=== PATIENT | female | born 1950 | race Caucasian/White ===

== ENCOUNTER 2016-10-09 13:10 | Emergency (ER) | payer BC, OTHER ==
[2016-10-09 14:01] VITALS: BP 188/95
--- NOTE | 2016-10-09 14:21 | UC ---
Respiratory Complaint HPI - HPI Summary HPI Summary: ONSET OF LEFT FACIAL SWELLING, REDNESS AND TENDERNESS YESTERDAY. PT HAS KNOWN EXTREMELY POOR DENTITION AND HAS CONSTANT DIFFUSE TOOTH PAIN THAT IS NOW WORSE. SHE HAS HAD SOME DRAINAGE FROM HER MOUTH OVER THE PAST WEEK. NOT SURE EXACTLY WHERE THIS IS COMING FROM. HAD FEVER LAST NIGHT. TEETH SENSITIVE TO HOT, COLD AND CHEWING. NO COUGH, CONGESTION, ST, EAT PAIN, N/V/D. - History of Current Complaint Chief Complaint: UCRespiratory Stated Complaint: SINUS CONGESTION Time Seen by Provider: 10/09/16 14:13 Hx Obtained From: Patient Onset/Duration: Gradual Onset, Lasting Days, Still Present Timing: Constant Severity Initially: Moderate Severity Currently: Moderate Pain Intensity: 8 Pain Scale Used: 0-10 Numeric Aggravating Factors: Nothing Alleviating Factors: Nothing Associated Signs And Symptoms: Positive: Fever - Allergies/Home Medications Allergies/Adverse Reactions: Allergies Allergy/AdvReac Type Severity Reaction Status Date / Time Ibuprofen AdvReac Mild See Comment Verified 10/09/16 14:37 Home Medications: Home Medications Atorvastatin* [Lipitor 20 MG*] 20 mg PO 1700 10/09/16 [History Confirmed ] Lansoprazole [Prevacid] 30 mg PO 10/09/16 [History] Lisinopril [Zestril 10 MG-] 10 mg PO DAILY 10/09/16 [History Confirmed 10/09/16] Multiple Vitamins W/ Minerals [Multivitamin Women] 1 tab PO 10/09/16 [History] metFORMIN* [Glucophage*] 500 mg PO BID 10/09/16 [History Confirmed 10/09/16] PMH/Surg Hx/FS Hx/Imm Hx Endocrine History Of: Reports: Diabetes - type 2 dm, Dyslipidemia Denies: Thyroid Disease Cardiovascular History Of: Reports: Hypertension Denies: Cardiac Disorders Respiratory History Of: Denies: COPD, Asthma GI/ History Of: Denies: Ulcer Cancer History Of: Denies: Breast Cancer - Surgical History Surgical History: Yes Surgery Procedure, Year, and Place: hysterectomy - Family History Known Family History: Positive: Hypertension, Diabetes - Social History Alcohol Use: Rare Substance Use Type: None Smoking Status (MU): Never Smoked Tobacco Review of Systems Constitutional: Fever Skin: Other - LEFT CHEEK ERYTHEMA ENT: Dental Pain Respiratory: Negative Cardiovascular: Negative Gastrointestinal: Negative All Other Systems Reviewed And Are Negative: Yes Physical Exam Triage Information Reviewed: Yes Appearance: Well-Appearing, No Pain Distress, Well-Nourished Vital Signs: Initial Vital Signs Temp 99.7 F 10/09/16 13:57 Pulse 93 10/09/16 13:57 Resp 18 10/09/16 13:57 BP 188/95 10/09/16 13:57 Pulse Ox 96 10/09/16 13:57 Vital Signs Reviewed: Yes Eyes: Positive: Conjunctiva Clear ENT: Positive: Hearing grossly normal, Pharynx normal, TMs normal Dental: Positive: Percussion Tenderness @ - DIFFUSELY OVER ALL DENTITION, Gross Decay/Caries @ - DIFFUSELY WITH EXTENSIVE PLAQUE BUILDUP. Neck: Positive: Supple, Nontender, No Lymphadenopathy Respiratory Exam: Normal Cardiovascular Exam: Normal Abdomen Description: Positive: Soft Musculoskeletal: Positive: No Edema Neurological: Positive: Alert Psychological: Positive: Age Appropriate Behavior Skin: Negative: rashes UC Diagnostic Evaluation - Laboratory O2 Sat by Pulse Oximetry: 96 Respiratory Course/Dx - Differential Dx/Diagnosis Differential Diagnosis/HQI/PQRI: Other - SIALADENITIS Provider Diagnoses: DENTAL INFECTION Discharge - Discharge Plan Condition: Stable Disposition: HOME Prescriptions: Amoxicillin/Clavulanate TAB* [Augmentin TAB 875*] 875 mg PO BID #20 tab Chlorhexidine MW 0.12% 473ML* [Peridex Mouth Wash 0.12%*] 15 ml SWISH SPIT BID # 1 bottle Fluconazole [Diflucan] 1 tab PO ONCE #2 tab Hydrocodone-Acetaminophen [Lorcet 5-325 mg] 1 tab PO QID PRN #20 tab MDD 4 PRN Reason: Pain Patient Education Materials: Dental Abscess (ED), Dental Caries (ED), Toothache (ED) Referrals: Delvin Alcantar MD [Primary Care Provider] - If Needed Additional Instructions: DENTAL OFFICE INFORMATION PROVIDED. YOU MUST SEE A DENTIST JOSEFINA FOR YOUR POOR DENTITION. TAKE THE ANTIBIOTIC FOR THE FULL 10 DAYS. ANTISEPTIC MOUTHWASH TWICE DAILY. PAIN MEDS NEEDED. USE THE DIFLUCAN FOR YEAST INFECTION IF NEEDED. SEEK FOLLOW-UP IF YOUR SYMPTOMS DO NOT IMPROVE OVER THE NEXT SEVERAL DAYS.
== END 2016-10-09 14:44 | disposition home or self-care (01) ==
LOC: UCEAST 13:10
DX: K04.7 Periapical abscess without sinus (principal); R50.9 Fever, unspecified; Z88.6 Allergy status to analgesic agent; E11.9 Type 2 diabetes mellitus without complications; Z79.84 Long term (current) use of oral hypoglycemic drugs; I10 Essential (primary) hypertension
CPT/HCPCS: 99212; G0463

== ENCOUNTER 2018-03-01 11:56 | Emergency (ER) | payer MEDICARE, OTHER ==
[2018-03-01 12:26] VITALS: BP 178/85
--- NOTE | 2018-03-01 12:32 | UC ---
Eye Complaint HPI - HPI Summary HPI Summary: 67 yo female presents with left eye redness, drainage, pain, and swelling for the last 3 days. She tells me that she was seen 4 days ago by ophthalmology and dx'd with conjunctivitis and placed on antibiotic eye drops. She had an eye patch at home that she has been applying herself. Since that time she has noticed the skin around the eye begin to swell, become more painful, and get red. She has also felt feverish, but has not taken her temperature. She is unable to open her left eye due to pain and swelling. Also has had a left sided headache. - History of Current Complaint Chief Complaint: UCEye Stated Complaint: eye complaint Time Seen by Provider: 03/01/18 12:32 Hx Obtained From: Patient Onset/Duration: Gradual Onset Timing: Constant Severity Initially: Moderate Severity Currently: Severe Pain Intensity: 8 Pain Scale Used: 0-10 Numeric - Allergies/Home Medications Allergies/Adverse Reactions: Allergies Allergy/AdvReac Type Severity Reaction Status Date / Time ibuprofen Allergy Unknown Verified 03/01/18 12:27 Reaction Details Penicillins Allergy Unknown Verified 03/01/18 12:27 Reaction Details Home Medications: Home Medications Acetaminophen [Acetaminophen Extra Strength] 500 mg PO 03/01/18 [History] Polymyxin B Sulfate,Micronized [Polymyxin B Sulfate] 1 each MC 03/01/18 [History ] PMH/Surg Hx/FS Hx/Imm Hx Endocrine History: Diabetes, Dyslipidemia Cardiovascular History: Hypertension - Surgical History Surgical History: Yes Surgery Procedure, Year, and Place: hysterectomy - Family History Known Family History: Positive: Hypertension, Diabetes - Social History Lives: With Family Alcohol Use: Rare Substance Use Type: None Smoking Status (MU): Never Smoked Tobacco Review of Systems Constitutional: Fever Skin: Negative Eyes: Drainage, Eye Redness, Other - Left eye swelling ENT: Negative Respiratory: Negative Cardiovascular: Negative Neurovascular: Negative Neurological: Headache Psychological: Negative All Other Systems Reviewed And Are Negative: Yes Physical Exam - Summary Physical Exam Summary: GENERAL: NAD. Obese SKIN: No rashes, sores, lesions, or open wounds - see EYES HEENT: Head: AT/NC Eyes: Left eye: Severe edema upper and lower lid with moderate TTP and erythema and surrounding edema. Copious drainage coming from the eye. Unable to manually open the eye due to swelling and pain. Erythema extends superior to her nasal bridge and overlying the left maxillary sinus. NECK: Supple. Nontender. No lymphadenopathy. CHEST: No accessory muscle use. Breathing comfortably and in no distress. CV: RRR. Without m/r/g. Pulses intact. Brisk cap refill. NEURO: Alert. PSYCH: Age appropriate behavior. Triage Information Reviewed: Yes Vital Signs: Initial Vital Signs Temp 101.4 F 03/01/18 12:21 Pulse 91 03/01/18 12:21 Resp 18 03/01/18 12:21 BP 178/85 03/01/18 12:21 Pulse Ox 95 03/01/18 12:21 Eye Complaint Course/Dx - Course Course Of Treatment: Periorbital cellulitis left eye with fever - her boyfriend drove her here today, he will drive her immediately to the ER. Opthalmology Dr. Epps is front clerk - Differential Dx/Diagnosis Provider Diagnoses: Periorbital cellulitis left Discharge - Sign-Out/Discharge Documenting (check all that apply): Discharge/Admit/Transfer - Discharge Plan Condition: Stable Disposition: HOME Referrals: Delvin Alcantar MD [Primary Care Provider] - Additional Instructions: Please have your boyfriend drive you directly to the ER for your eye swelling - Billing Disposition and Condition Condition: STABLE Disposition: Home
== END 2018-03-01 12:40 | disposition home or self-care (01) ==
LOC: UCEAST 11:56
DX: L03.213 Periorbital cellulitis (principal); E11.9 Type 2 diabetes mellitus without complications; I10 Essential (primary) hypertension; Z88.0 Allergy status to penicillin; Z88.8 Allergy status to other drugs, medicaments and biological substances
CPT/HCPCS: 99212; G0463

== ENCOUNTER 2018-03-01 13:09 | Inpatient (IN) | payer MEDICARE ==
[2018-03-01] MEDS ORDERED: NS 0.9% 1000 ML*IV.FLUID IV ONE (13:39)
[2018-03-01] MEDS ORDERED: cefTRIAXone(*) 2 GM in NS 0.9% 100 ML* 100 ML IVPB ONE (13:45)
[2018-03-01] MEDS ORDERED: Vancomycin(*) 1,000 MG in NS 0.9% 250 ML* 250 ML IVPB ONE (13:45)
--- NOTE | 2018-03-01 14:27 | RAD ---
Indication: Fever. Single frontal view of the chest performed at 1400 hours was reviewed. No prior study is available. No mediastinal shift is noted. Heart is of normal size and configuration. Lung hoffman appear clear. IMPRESSION: NO ACTIVE CARDIOPULMONARY DISEASE IS NOTED.
--- NOTE | 2018-03-01 14:39 | RAD ---
Indication: Headache and fever. CT of the brain was performed without IV contrast. No prior study is available for comparison. Ventricular structures are midline. No midline shift is noted. There is no evidence of intracranial hemorrhage. At the base of the skull there is a slightly hyperdense extra-axial mass which is adjacent and extrinsic to the gerardo arising from the base of the skull which may represent a small meningioma. MRI could BE performed on a nonemergent basis. Mastoid air cells and paranasal sinuses are otherwise unremarkable. The orbits are grossly unremarkable. IMPRESSION: There is no intracranial hemorrhage. There is an extra-axial hyperdense mass at the skull base in the prepontine cistern measuring up to 1.5 cm which may represent a meningioma. Correlation with nonemergent MRI is suggested.
--- NOTE | 2018-03-01 14:42 | RAD ---
Indication: Left facial swelling. CT of the facial bones was performed without IV contrast. Coronal and sagittal reconstructed images were obtained. There is marked soft tissue swelling surrounding the right orbit with swelling of the eyelid and soft tissues surrounding the right orbit. No intraconal or extraconal extension is noted. No drainable fluid collection is noted. Findings are consistent with left periorbital cellulitis. No evidence of intraorbital fat streaking is noted. Extraocular muscles are intact. No bony abnormality is identified. Paranasal sinuses are clear. The right orbit is otherwise unremarkable. Zygomatic arch and zygoma are intact. The visualized mandible is intact. The visualized cervical spine is unremarkable. Scattered lymph nodes are noted throughout the neck. IMPRESSION: Soft tissue swelling surrounding the left orbit consistent with left periorbital cellulitis without drainable fluid collection. No extension into the intraconal or extraconal orbit is noted.
[2018-03-01] MEDS ORDERED: Acyclovir IV(*) 800 MG in NS 0.9% 250 ML* 250 ML IVPB SCH (15:00)
[2018-03-01 15:13] LABS: ABS Basophils 0 10^3/ul (0-0.2); ABS Eosinophils 0 10^3/ul (0-0.6); ABS Lymphocytes 1.7 10^3/ul (1.0-4.8); ABS Monocytes 1.5 10^3/ul (0-0.8); ABS Neutrophils 7.6 10^3/ul (1.5-7.7); ABS Nucleated RBC 0 10^3/ul; Eosinophil % 0 % (0-6); Hematocrit 36 % (35-47); Hemoglobin 11.8 g/dl (12.0-16.0); Lymphocyte % 15.3 % (25-47); Mean Corpuscular HGB Conc 33 g/dl (31-36); Mean Corpuscular Hemoglobin 27 pg (27-31); Mean Corpuscular Volume 81 fL (80-97); Mean Platelet Volume 8.6 um3 (7.4-10.4); Nucleated Red Blood Cells % 0; Platelet Count 177 10^3/ul (150-450); Red Blood Count 4.39 10^6/ul (4.00-5.40); Red Cell Distribution Width 15 % (10.5-15); White Blood Count 10.8 10^3/ul (3.5-10.8)
[2018-03-01 15:22] LABS: INR 1.03 (0.77-1.02)
[2018-03-01 15:31] LABS: EGFR Non-African American 64.5 (>60)
[2018-03-01] MEDS ORDERED: Dextrose 50% Syringe 50 ML* 25 GM/50 ML SYRINGE IV PUSH PRN (16:04)
[2018-03-01] MEDS ORDERED: HYDROcodone/ACETAMIN 5-325 MG* 1 TAB PO PRN (16:06)
--- NOTE | 2018-03-01 16:19 | ADMNOTE ---
Subjective Date of Service: 03/01/18 Interval History: ADMISSION HISTORY AND PHYSICAL EXAM: Allergies Allergy/AdvReac Type Severity Reaction Status Date / Time ibuprofen Allergy Unknown Verified 03/01/18 13:33 Reaction Details Penicillins ADVERSE REACTION YEAST INFECTION Verified 03/01/18 13:33 Home Medications Medication Instructions Recorded Confirmed Type Atorvastatin* [Lipitor 20 MG*] 20 mg PO 1700 10/09/16 05/09/17 History Hydrocodone-Acetaminophen [Lorcet 1 tab PO QID PRN #20 tab MDD 4 10/09/16 Rx 5-325 mg] Lansoprazole [Prevacid] 30 mg PO 10/09/16 History Lisinopril [Zestril 10 MG-] 10 mg PO DAILY 10/09/16 10/09/16 History Multiple Vitamins W/ Minerals 1 tab PO 10/09/16 History [Multivitamin Women] metFORMIN* [Glucophage 500 MG TAB 500 mg PO BID 10/09/16 05/09/17 History *] Meloxicam 05/09/17 History Acetaminophen [Acetaminophen Extra 500 mg PO 03/01/18 History Strength] Polymyxin B Sulfate,Micronized 1 each MC 03/01/18 History [Polymyxin B Sulfate] HPI: The patient was in her usual state of health until 02/24 when she developed pain and redness of the L eye. She saw Dr. Epps on 02/26 and he prescribed polymixin B eye drops. The redness spread to her periorbital area and her scalp and the pain worsened. She took some APAP, none today, can tolerate the pain. She ate breakfast. Chills and sweats at home. Family History: Findings - M had colon cancer, daughter had melanoma. F unknown cause. Social History: Findings - Quit smoking many yrs ago. Works part-time. Lives with her boyfriend Luis Galvin. He and her daughter Soraya are her SDM's. Past Medical History: Findings - Hysterectomy, D&C, 3 children Review of Systems - Measurements Intake and Output: Intake and Output Last 24 Hours 02/27/18 02/28/18 03/01/18 03/02/18 06:59 06:59 06:59 06:59 Weight 240 lb - Review of Systems Constitutional Symptoms: Negative: Weight Gain, Weight Loss, Weakness, Fatigue, Fever, Night Sweats, Unexplained Falls, Other Dermatology: Positive: Other - see subjective HEENT: Positive: Normal Eyes: Positive: Other - see subjective Thyroid: Positive: Normal Pulmonary: Positive: Normal Cardiology: Positive: Normal Gastroenterology: Positive: Normal Genital - Urinary: Positive: Normal Musculoskeletal: Negative: Joint Pain, Joint Stiffness, Arthritis, Osteoporosis, Low Back Pain , Sciatica, Joint Deformities, Kyphoscoliosis, Other Endocrinology: Positive: Diabetes Mellitus Hematologic/Lymphatic: Negative: Anemia, Easy Brusing, Hx Leukemia, Hx Lymphoma, Use of Anticoagulant, Use of Antiplatelet Drugs, Other Neurology: Positive: Headache Psychiatry: Positive: Normal Allergic/Immunologic: Negative: Hx Anaphylaxis, Hx Angioedema, Hx Environmental, Hx Seasonal, Athsma, Hx HIV, Immunocompromise, Swollen Glands LymphNodes, Other Objective Active Medications: Hydrocodone Bitart/Acetaminophen (Bozrah 5-325 Tab*) 1 tab PO QID PRN PRN Reason: PAIN Dextrose (D50w Syringe 50 Ml*) 12.5 gm IV PUSH .FOR FS < 60 - SS PRN PRN Reason: FS < 60 Enoxaparin Sodium (Lovenox(*)) 40 mg SUBCUT Q24H IRENE Acyclovir Sodium 800 mg/ (Sodium Chloride) 266 mls @ 266 mls/hr IVPB Q8H IRENE Acyclovir Sodium 800 mg/ (Sodium Chloride) 266 mls @ 0 mls/hr IVPB Q8H IRENE Vancomycin HCl / Sodium (Chloride) 250 mls @ 166.667 mls/hr IVPB .CONTINUE PROTOCOL IRENE Piperacillin Sod/Tazobactam (Sod 3.375 gm/ Sodium Chloride) 100 mls @ 25 mls/ hr IVPB Q8H [facility] Insulin Human Lispro (Humalog*) 0 units SUBCUT ACHS IRENE; Protocol Lisinopril (Prinivil Tab*) 10 mg PO DAILY [facility] Non-Formulary Medication (Polymyxin B Sulfate,Micronized [Polymyxin B Sulfate]) 1 each MC QID IRENE Omeprazole (Prilosec Cap*) 20 mg PO DAILY@0600 [facility] Vital Signs - 8 hr 03/01/18 03/01/18 03/01/18 13:27 13:31 13:32 Temperature 102.5 F Pulse Rate 88 87 85 Respiratory 18 21 23 Rate Blood Pressure 180/85 180/85 (mmHg) O2 Sat by Pulse 96 94 94 Oximetry 03/01/18 03/01/1818 13:43 13:45 14:00 Temperature 102.1 F Pulse Rate 75 79 Respiratory 16 30 Rate Blood Pressure (mmHg) O2 Sat by Pulse 94 94 Oximetry 03/01/18 03/01/18 03/01/18 14:30 14:32 14:58 Temperature 101.4 F Pulse Rate 77 77 Respiratory 24 Rate Blood Pressure 155/68 158/68 (mmHg) O2 Sat by Pulse 95 93 Oximetry 03/01/18 03/01/18 03/01/18 15:00 15:45 15:46 Temperature 100.4 F Pulse Rate 76 79 Respiratory 19 Rate Blood Pressure 140/78 (mmHg) O2 Sat by Pulse 95 94 Oximetry Oxygen Devices in Use Now: None Appearance: Alert, on her R side on ED stretcher. Looks uncomfortable. Eyes: No Scleral Icterus, - - L lids markedly swollen, difficult to open to see eye. Neck: NL Appearance and Movements; NL JVP, No Thyroid Enlargement, Masses Respiratory: Symmetrical Chest Expansion and Respiratory Effort, Clear to Auscultation, Clear to Percussion Cardiovascular: NL Sounds; No Murmurs; No JVD, RRR, No Edema, - Abdominal: NL Sounds; No Tenderness; No Distention, No Hepatosplenomegaly, - - obese Extremities: No Edema, No Clubbing, Cyanosis, - Skin: No Nodules or Sclerosis, - - L Result Diagrams: 03/01/18 15:00 03/01/18 15:00 Assess/Plan/Problems-Billing Assessment: - Patient Problems (1) Cellulitis of left orbit Current Visit: Yes Status: Acute Code(s): H05.012 - CELLULITIS OF LEFT ORBIT SNOMED Code(s): 633522996 Comment: Suspicion for zoster as does not cross the midline. Continue IV acyclovir, pip/pan, vanco. Blood C&S pending. Pharmacist reviewing all dosing. (2) Diabetes Current Visit: No Status: Chronic Code(s): E11.9 - TYPE 2 DIABETES MELLITUS WITHOUT COMPLICATIONS SNOMED Code(s): 44435685 Comment: Lispro by SS, hold metformin. (3) Hypertension Current Visit: No Status: Chronic Code(s): I10 - ESSENTIAL (PRIMARY) HYPERTENSION SNOMED Code(s): 82196086 Comment: Continue home BP meds. (4) Meningioma Current Visit: Yes Status: Acute Code(s): D32.9 - BENIGN NEOPLASM OF MENINGES, UNSPECIFIED SNOMED Code(s): 147469081 Comment: Diagnosis not certain. Small, asymptomatic, needs outpt eval.
[2018-03-01] MEDS ORDERED: Zosyn per Pharmacy* NOTE FOLLOW UP PRN (16:23)
[2018-03-01] MEDS: Acetaminophen TAB* 325 MG PO PRN (16:50)
[2018-03-01] MEDS: Insulin LISPRO* 1 UNITS UNIT SUBCUT SCH ×2 (18:00→22:10)
[2018-03-01] MEDS ORDERED: ZOSYN 3.375 GM x ONE DOSE over 30 miuntes IVPB ×2 (18:00)
[2018-03-01] MEDS: POLYMYXIN B SULFATE MC SCH ×2 (18:02→22:17)
[2018-03-01] MEDS: Enoxaparin(*) 40 MG/0.4 ML SYR SUBCUT SCH (18:16)
--- NOTE | 2018-03-01 18:51 | ED ---
Roel Brooks Tariq, scribed for Roni King MD on 03/01/18 at 1414 . Complex/Multi-Sys Presentation - HPI Summary HPI Summary: A 67 y/o female presents to ED c/o headache. Additionally, c/o rash near left eye and neck pain. According to pt, headache started last week, radiating from the back of head to the front of head. A rash showed up the next day. Pt went to and was prescribed eye drops to be taken 4x a day. Pt came to ED today because the rash became more severe and her eye is swollen, pain 7-8/10. Additionally, she feels weak. Pt noted that she slightly open her eye, however not fully. Currently on eye drops, however no steroid medications. - History Of Current Complaint Chief Complaint: EDFever Time Seen by Provider: 03/01/18 13:28 Hx Obtained From: Patient Onset/Duration: Sudden Onset, Lasting Days, Still Present Timing: Constant Location: Radiates To: - From back of head to front of head Associated Signs And Symptoms: Positive: Weakness, Headache - Allergies/Home Medications Allergies/Adverse Reactions: Allergies Allergy/AdvReac Type Severity Reaction Status Date / Time ibuprofen Allergy Unknown Verified 03/01/18 13:33 Reaction Details Penicillins AdvReac Unknown Verified 03/01/18 16:23 Reaction Details PMH/Surg Hx/FS Hx/Imm Hx Endocrine/Hematology History: Reports: Hx Diabetes - type 2 dm Denies: Hx Thyroid Disease, Hx Anemia Cardiovascular History: Reports: Hx Hypertension Respiratory History: Denies: Hx Asthma, Hx Chronic Obstructive Pulmonary Disease (COPD) GI History: Denies: Hx Jaundice, Hx Ulcer Sensory History: Reports: Hx Contacts or Glasses Opthamlomology History: Reports: Hx Contacts or Glasses - Cancer History Hx Chemotherapy: No Hx Radiation Therapy: No - Surgical History Surgery Procedure, Year, and Place: hysterectomy Infectious Disease History: No Infectious Disease History: Denies: Hx Hepatitis, Hx Human Immunodeficiency Virus (HIV), Traveled Outside the [place] in Last 30 Days - Family History Known Family History: Positive: Hypertension, Diabetes - Social History Alcohol Use: Rare Substance Use Type: Reports: None Smoking Status (MU): Never Smoked Tobacco Type: Cigarettes Length of Time of Smoking/Using Tobacco: 10 yrs Have You Smoked in the Last Year: No Review of Systems Positive: Fever Positive: Other - POSITIVE: Neck pain Positive: Rash - Near upper left eye, Other - POSITIVE: Swelling near left eye Neurological: Other - POSITIVE: Weakness Positive: Headache All Other Systems Reviewed And Are Negative: Yes Physical Exam - Summary Physical Exam Summary: General:moderately ill appearing, no pain distress Skin:Left forearm and eye lid swollen. Erythematous rash area on forehead, near hairline and off to side. Small areas of scabbing. Consistent with vesicular billet inspector rash. Head:normal Eyes:Left eye lid is swollen shut, crusty on eyelid. When eye lid is open, the eye is injected. Good range of motion. ENT:normal Neck:supple, nontender Respiratory:CTA, breath sounds present Cardiovascular:RRR Abdomen:soft, nontender Bowel:present Musculoskeletal:normal, strength/ROM intact Neurological:sensory/motor intact, A&O x3 Psychological:affect/mood appropriate GCS: 15 Triage Information Reviewed: Yes Vital Signs On Initial Exam: Initial Vitals Temp Pulse Resp BP Pulse Ox 102.5 F 88 18 180/85 96 03/01/18 13:27 03/01/18 13:27 03/01/18 13:27 03/01/18 13:27 03/01/18 13:27 Vital Signs Reviewed: Yes Diagnostics - Vital Signs Vital Signs Temp Pulse Resp BP Pulse Ox 03/01/18 13:43 94 03/01/18 13:27 102.5 F 88 18 180/85 96 - Laboratory Lab Results: Lab Results 03/01/18 03/01/18 03/01/18 Range/Units 15:00 15:00 15:00 WBC 10.8 (3.5-10.8) 10^3/ul RBC 4.39 (4.00-5.40) 10^6/ul Hgb 11.8 L (12.0-16.0) g/dl Hct 36 (35-47) % MCV 81 (80-97) fL MCH 27 (27-31) pg MCHC 33 (31-36) g/dl RDW 15 (10.5-15) % Plt Count 177 (150-450) 10^3/ul MPV 8.6 (7.4-10.4) um3 Neut % (Auto) 70.3 (38-83) % Lymph % (Auto) 15.3 L (25-47) % Arthur % (Auto) 14.1 H (0-7) % Eos % (Auto) 0 (0-6) % Baso % (Auto) 0.3 (0-2) % Absolute Neuts (auto) 7.6 (1.5-7.7) 10^3/ul Absolute Lymphs (auto) 1.7 (1.0-4.8) 10^3/ul Absolute Monos (auto) 1.5 H (0-0.8) 10^3/ul Absolute Eos (auto) 0 (0-0.6) 10^3/ul Absolute Basos (auto) 0 (0-0.2) 10^3/ul Absolute Nucleated RBC 0 10^3/ul Nucleated RBC % 0 INR (Anticoag Therapy) 1.03 H (0.77-1.02) APTT 27.0 (26.0-36.3) seconds Sodium 133 L (135-145) mmol/L Potassium 3.2 L (3.5-5.0) mmol/L Chloride 93 L (101-111) mmol/L Carbon Dioxide 29 (22-32) mmol/L Anion Gap 11 (2-11) mmol/L BUN 15 (6-24) mg/dL Creatinine 0.88 (0.51-0.95) mg/dL Est GFR ( Amer) 78.0 (>60) Est GFR (Non-Af Amer) 64.5 (>60) BUN/Creatinine Ratio 17.0 (8-20) Glucose 128 H (70-100) mg/dL Lactic Acid (0.5-2.0) mmol/L Calcium 8.7 (8.6-10.3) mg/dL Total Bilirubin 0.30 (0.2-1.0) mg/dL AST 21 (13-39) U/L ALT 16 (7-52) U/L Alkaline Phosphatase 69 (34-104) U/L Troponin I 0.01 (<0.04) ng/mL C-Reactive Protein 31.95 H (<8.01) mg/L Total Protein 6.9 (6.4-8.9) g/dL Albumin 3.5 (3.2-5.2) g/dL Globulin 3.4 (2-4) g/dL Albumin/Globulin Ratio 1.0 (1-3) 06/30/18 Range/Units 15:00 WBC (3.5-10.8) 10^3/ul RBC (4.00-5.40) 10^6/ul Hgb (12.0-16.0) g/dl Hct (35-47) % MCV (80-97) fL MCH (27-31) pg MCHC (31-36) g/dl RDW (10.5-15) % Plt Count (150-450) 10^3/ul MPV (7.4-10.4) um3 Neut % (Auto) (38-83) % Lymph % (Auto) (25-47) % Arthur % (Auto) (0-7) % Eos % (Auto) (0-6) % Baso % (Auto) (0-2) % Absolute Neuts (auto) (1.5-7.7) 10^3/ul Absolute Lymphs (auto) (1.0-4.8) 10^3/ul Absolute Monos (auto) (0-0.8) 10^3/ul Absolute Eos (auto) (0-0.6) 10^3/ul Absolute Basos (auto) (0-0.2) 10^3/ul Absolute Nucleated RBC 10^3/ul Nucleated RBC % INR (Anticoag Therapy) (0.77-1.02) APTT (26.0-36.3) seconds Sodium (135-145) mmol/L Potassium (3.5-5.0) mmol/L Chloride (101-111) mmol/L Carbon Dioxide (22-32) mmol/L Anion Gap (2-11) mmol/L BUN (6-24) mg/dL Creatinine (0.51-0.95) mg/dL Est GFR ( Amer) (>60) Est GFR (Non-Af Amer) (>60) BUN/Creatinine Ratio (8-20) Glucose (70-100) mg/dL Lactic Acid 1.4 (0.5-2.0) mmol/L Calcium (8.6-10.3) mg/dL Total Bilirubin (0.2-1.0) mg/dL AST (13-39) U/L ALT (7-52) U/L Alkaline Phosphatase (34-104) U/L Troponin I (<0.04) ng/mL C-Reactive Protein (<8.01) mg/L Total Protein (6.4-8.9) g/dL Albumin (3.2-5.2) g/dL Globulin (2-4) g/dL Albumin/Globulin Ratio (1-3) Result Diagrams: 03/01/18 15:00 03/01/18 15:00 Lab Statement: Any lab studies that have been ordered have been reviewed, and results considered in the medical decision making process. - Radiology CXR Radiology Interpretation Completed By: Radiologist - NO ACTIVE CARDIOPULMONARY DISEASE IS NOTED. ED PHYSICIAN REVIEWED THIS RADIOLOGY REPORT. - CT BRAIN CT CT Interpretation Completed By: Radiologist - There is no intracranial hemorrhage. There is an extra-axial hyperdense mass at the skull base in the prepontine cistern measuring up to 1.5 cm which may represent a meningioma. Correlation with nonemergent MRI is suggested. ED PHYSICIAN REVIEWED THIS RADIOLOGY REPORT. MAXILLOFACIAL CT CT Interpretation Completed By: Radiologist - Soft tissue swelling surrounding the left orbit consistent with left periorbital cellulitis without drainable fluid collection. No extension into the intraconal or extraconal orbit is noted. ED PHYSICIAN REVIEWED THIS RADIOLOGY REPORT. - EKG 1344 Cardiac Rate: NL - 82 BPM EKG Rhythm: Sinus Rhythm ST Segment: Normal Ectopy: None EKG Interpretation: Borderline Short MT interval 118 Complex Multi-Symp Course/Dx Course Of Treatment: DISCUSSED WITH DR EPPS, OPHTHALMOLOGY. HE RECOMMENDED CONTINUING THE POLYMIXIN B. ANTIBIOTICS AND ANTIVIRAL STARTED. ADMIT HOSPITALIST. - Diagnoses Provider Diagnoses: Periorbital cellulitis of left eye, Zoster - Physician Notifications Discussed Care Of Patient With: Bert Haynes - Admit Time Discussed With Above Provider: 14:50 Instructed by Provider To: Other - 1458: Layo Epps (ophthalmology) called back recommending treatment with antiviral and antibacterial medications. As far as parental treatment, keep on polymyxin eye drops, no additional eye drops. Discharge - Sign-Out/Discharge Documenting (check all that apply): Discharge/Admit/Transfer - Discharge Plan Condition: Stable Disposition: ADMITTED TO [facility] - Billing Disposition and Condition Condition: STABLE Disposition: Admitted to [facility] The documentation as recorded by the Roel herron Tariq accurately reflects the service I personally performed and the decisions made by , Roni King MD.
[2018-03-01] MEDS: Vancomycin(*) 1,000 MG in NS 0.9% 250 ML* 250 ML IVPB SCH (22:09)
[2018-03-02] MEDS: Piperacillin/Tazobac ADVAN(*) 3.375 GM in NS 0.9% 100 ML* 100 ML IVPB SCH ×4 (01:09→23:58)
[2018-03-02] MEDS: Acyclovir IV(*) 800 MG in NS 0.9% 250 ML* 250 ML IVPB SCH ×3 (05:00→20:11)
[2018-03-02] MEDS: Omeprazole CAP* 20 MG PO SCH (06:15)
[2018-03-02] MEDS: Vancomycin(*) 1,000 MG in NS 0.9% 250 ML* 250 ML IVPB SCH ×3 (06:15→22:01)
[2018-03-02] MEDS: Insulin LISPRO* 1 UNITS UNIT SUBCUT SCH ×4 (07:30→22:38)
--- NOTE | 2018-03-02 07:44 | PN ---
Subjective Date of Service: 03/02/18 Interval History: Small amount of subj improvement. Family History: Findings - M had colon cancer, daughter had melanoma. F unknown cause. Social History: Findings - Quit smoking many yrs ago. Works part-time. Lives with her boyfriend Luis Galvin. He and her daughter Soraya are her SDM's. Past Medical History: Findings - Hysterectomy, D&C, 3 children Objective Active Medications: Acetaminophen (Tylenol Tab*) 650 mg PO Q4H PRN PRN Reason: PAIN Last Admin: 03/01/18 16:50 Dose: 650 mg Hydrocodone Bitart/Acetaminophen ([place] 5-325 Tab*) 1 tab PO QID PRN PRN Reason: PAIN Last Admin: 03/01/18 21:12 Dose: 1 tab Dextrose (D50w Syringe 50 Ml*) 12.5 gm IV PUSH .FOR FS < 60 - SS PRN PRN Reason: FS < 60 Enoxaparin Sodium (Lovenox(*)) 40 mg SUBCUT Q24H [facility] Last Admin: 03/01/18 18:16 Dose: 40 mg Acyclovir Sodium 800 mg/ (Sodium Chloride) 266 mls @ 266 mls/hr IVPB Q8H [facility] Last Admin: 03/02/18 05:00 Dose: 266 mls/hr Vancomycin HCl 1,000 mg/ (Sodium Chloride) 250 mls @ 166.667 mls/hr IVPB Q8HR [facility] Last Admin: 03/02/18 06:15 Dose: 166.667 mls/hr Piperacillin Sod/Tazobactam (Sod 3.375 gm/ Sodium Chloride) 100 mls @ 25 mls/ hr IVPB Q8H [facility] Last Admin: 03/02/18 01:09 Dose: 25 mls/hr Insulin Human Lispro (Humalog*) 0 units SUBCUT ACHS [facility]; Protocol Last Admin: 03/02/18 07:30 Dose: Not Given Lisinopril (Prinivil Tab*) 10 mg PO DAILY [facility] Nf: (Polymyxin B Sulfate,Micronized [ Polymyxin B Sulfate] 1 Each) 1 each MC QID [facility] Last Admin: 03/01/18 22:17 Dose: Not Given Omeprazole (Prilosec Cap*) 20 mg PO DAILY@0600 [facility] Last Admin: 03/02/18 06:15 Dose: 20 mg Pharmacy Consult (Zosyn Per Pharmacy*) 1 note FOLLOW UP . PRN PRN Reason: PER PROTOCOL Pharmacy Profile Note (Vancomycin Trough Check) 1 note FOLLOW UP ONCE ONE Stop: 03/03/18 05:31 Potassium Chloride (Klor Con Er Tab*) 10 meq PO TID IRENE Vital Signs - 8 hr 03/02/18 03/02/18 01:14 03:25 Temperature 99.9 F Pulse Rate 73 Respiratory 20 16 Rate Blood Pressure 143/50 (mmHg) O2 Sat by Pulse 95 Oximetry Oxygen Devices in Use Now: None Appearance: Alert, lying on her L side in bed. In fair spirits, looks tired. Eyes: No Scleral Icterus Extremities: No Edema, No Clubbing, Cyanosis Skin: No Nodules or Sclerosis, - - L periorbital area confluent erythema, ? flat blisters, sharply demarcated at midline, extends into scalp Neurological: Alert and Oriented x 3, NL Sensation Result Diagrams: 03/01/18 15:00 03/01/18 15:00 Additional Lab and Data: Lab Results 03/01/18 03/01/18 03/01/18 Range/Units 15:00 15:00 15:00 WBC 10.8 (3.5-10.8) 10^3/ul RBC 4.39 (4.00-5.40) 10^6/ul Hgb 11.8 L (12.0-16.0) g/dl Hct 36 (35-47) % MCV 81 (80-97) fL MCH 27 (27-31) pg MCHC 33 (31-36) g/dl RDW 15 (10.5-15) % Plt Count 177 (150-450) 10^3/ul MPV 8.6 (7.4-10.4) um3 Neut % (Auto) 70.3 (38-83) % Lymph % (Auto) 15.3 L (25-47) % Clay % (Auto) 14.1 H (0-7) % Eos % (Auto) 0 (0-6) % Baso % (Auto) 0.3 (0-2) % Absolute Neuts (auto) 7.6 (1.5-7.7) 10^3/ul Absolute Lymphs (auto) 1.7 (1.0-4.8) 10^3/ul Absolute Monos (auto) 1.5 H (0-0.8) 10^3/ul Absolute Eos (auto) 0 (0-0.6) 10^3/ul Absolute Basos (auto) 0 (0-0.2) 10^3/ul Absolute Nucleated RBC 0 10^3/ul Nucleated RBC % 0 INR (Anticoag Therapy) 1.03 H (0.77-1.02) APTT 27.0 (26.0-36.3) seconds Sodium 133 L (135-145) mmol/L Potassium 3.2 L (3.5-5.0) mmol/L Chloride 93 L (101-111) mmol/L Carbon Dioxide 29 (22-32) mmol/L Anion Gap 11 (2-11) mmol/L BUN 15 (6-24) mg/dL Creatinine 0.88 (0.51-0.95) mg/dL Est GFR ( Amer) 78.0 (>60) Est GFR (Non-Af Amer) 64.5 (>60) BUN/Creatinine Ratio 17.0 (8-20) Glucose 128 H (70-100) mg/dL Lactic Acid (0.5-2.0) mmol/L Calcium 8.7 (8.6-10.3) mg/dL Total Bilirubin 0.30 (0.2-1.0) mg/dL AST 21 (13-39) U/L ALT 16 (7-52) U/L Alkaline Phosphatase 69 (34-104) U/L Troponin I 0.01 (<0.04) ng/mL C-Reactive Protein 31.95 H (<8.01) mg/L Total Protein 6.9 (6.4-8.9) g/dL Albumin 3.5 (3.2-5.2) g/dL Globulin 3.4 (2-4) g/dL Albumin/Globulin Ratio 1.0 (1-3) 03/01/18 Range/Units 15:00 WBC (3.5-10.8) 10^3/ul RBC (4.00-5.40) 10^6/ul Hgb (12.0-16.0) g/dl Hct (35-47) % MCV (80-97) fL MCH (27-31) pg MCHC (31-36) g/dl RDW (10.5-15) % Plt Count (150-450) 10^3/ul MPV (7.4-10.4) um3 Neut % (Auto) (38-83) % Lymph % (Auto) (25-47) % Clay % (Auto) (0-7) % Eos % (Auto) (0-6) % Baso % (Auto) (0-2) % Absolute Neuts (auto) (1.5-7.7) 10^3/ul Absolute Lymphs (auto) (1.0-4.8) 10^3/ul Absolute Monos (auto) (0-0.8) 10^3/ul Absolute Eos (auto) (0-0.6) 10^3/ul Absolute Basos (auto) (0-0.2) 10^3/ul Absolute Nucleated RBC 10^3/ul Nucleated RBC % INR (Anticoag Therapy) (0.77-1.02) APTT (26.0-36.3) seconds Sodium (135-145) mmol/L Potassium (3.5-5.0) mmol/L Chloride (101-111) mmol/L Carbon Dioxide (22-32) mmol/L Anion Gap (2-11) mmol/L BUN (6-24) mg/dL Creatinine (0.51-0.95) mg/dL Est GFR ( Amer) (>60) Est GFR (Non-Af Amer) (>60) BUN/Creatinine Ratio (8-20) Glucose (70-100) mg/dL Lactic Acid 1.4 (0.5-2.0) mmol/L Calcium (8.6-10.3) mg/dL Total Bilirubin (0.2-1.0) mg/dL AST (13-39) U/L ALT (7-52) U/L Alkaline Phosphatase (34-104) U/L Troponin I (<0.04) ng/mL C-Reactive Protein (<8.01) mg/L Total Protein (6.4-8.9) g/dL Albumin (3.2-5.2) g/dL Globulin (2-4) g/dL Albumin/Globulin Ratio (1-3) Assess/Plan/Problems-Billing Assessment: - Patient Problems (1) Cellulitis of left orbit Current Visit: Yes Status: Acute Code(s): H05.012 - CELLULITIS OF LEFT ORBIT SNOMED Code(s): 912278883 Comment: High suspicion for zoster as does not cross the midline. Continue IV acyclovir, pip/apn, vanco. Blood C&S pending. Zoster IgM level to be sent out 03/03. Sl better 03/02--sl less red and sl less edema of eyelids, can more easily open L eye by pulling down on lower lid. Repeat CBC 03/03. (2) Diabetes Current Visit: No Status: Chronic Code(s): E11.9 - TYPE 2 DIABETES MELLITUS WITHOUT COMPLICATIONS SNOMED Code(s): 11730617 Comment: Lispro by SS, hold metformin. As of 03/03 8 AM only needed 2 U Lispro so far. (3) Hypertension Current Visit: No Status: Chronic Code(s): I10 - ESSENTIAL (PRIMARY) HYPERTENSION SNOMED Code(s): 54693170 Comment: Continue lisinopril. (4) Meningioma Current Visit: Yes Status: Acute Code(s): D32.9 - BENIGN NEOPLASM OF MENINGES, UNSPECIFIED SNOMED Code(s): 860027506 Comment: Seen on CT scan, diagnosis not certain. Small, asymptomatic, needs outpt eval. (5) Hypokalemia Current Visit: Yes Status: Acute Code(s): E87.6 - HYPOKALEMIA SNOMED Code( s): 66205288 Comment: KCL 10 meq tid started 03/02 AM. BMP 03/03.
[2018-03-02] MEDS: Lisinopril TAB* 10 MG PO SCH (07:54)
[2018-03-02] MEDS: Potassium Chlor TAB* 10 MEQ TAB.ER PO SCH ×3 (07:54→22:02)
[2018-03-02] MEDS: POLYMYXIN B SULFATE MC SCH ×3 (08:14→15:19)
[2018-03-02] MEDS: Acetaminophen TAB* 325 MG PO PRN ×2 (08:46→16:39)
[2018-03-02 09:59] LABS: Urine Appearance Cloudy; Urine Blood Negative (Negative); Urine Color Yellow; Urine Ketones Negative (Negative); Urine Protein Negative (Negative); Urine Specific Gravity 1.016 (1.010-1.030); Urine Urobilinogen Negative (Negative)
[2018-03-02] MEDS: Enoxaparin(*) 40 MG/0.4 ML SYR SUBCUT SCH (16:40)
[2018-03-03] MEDS: Acetaminophen TAB* 325 MG PO PRN ×3 (02:07→21:37)
[2018-03-03] MEDS: Acyclovir IV(*) 800 MG in NS 0.9% 250 ML* 250 ML IVPB SCH ×3 (04:35→22:57)
[2018-03-03] MEDS ORDERED: Vancomycin Trough Check NOTE FOLLOW UP ONE (05:30)
[2018-03-03] MEDS: Omeprazole CAP* 20 MG PO SCH (06:07)
[2018-03-03] MEDS: Vancomycin(*) 1,000 MG in NS 0.9% 250 ML* 250 ML IVPB SCH ×2 (06:40→16:20)
[2018-03-03 07:00] LABS: ABS Basophils 0.1 10^3/ul (0-0.2); ABS Eosinophils 0.1 10^3/ul (0-0.6); ABS Monocytes 0.9 10^3/ul (0-0.8); ABS Neutrophils 5.3 10^3/ul (1.5-7.7); ABS Nucleated RBC 0 10^3/ul; Hematocrit 31 % (35-47); Hemoglobin 10.2 g/dl (12.0-16.0); Lymphocyte % 32.1 % (25-47); Mean Corpuscular HGB Conc 33 g/dl (31-36); Mean Corpuscular Hemoglobin 27 pg (27-31); Mean Corpuscular Volume 82 fL (80-97); Mean Platelet Volume 8.8 um3 (7.4-10.4); Nucleated Red Blood Cells % 0; Platelet Count 163 10^3/ul (150-450); Red Cell Distribution Width 15 % (10.5-15); White Blood Count 9.4 10^3/ul (3.5-10.8)
[2018-03-03 07:51] LABS: Vancomycin Trough 12.8 mcg/mL
[2018-03-03 07:52] LABS: EGFR Non-African American 86.8 (>60)
[2018-03-03] MEDS: Insulin LISPRO* 1 UNITS UNIT SUBCUT SCH ×4 (08:17→21:05)
[2018-03-03] MEDS: Lisinopril TAB* 10 MG PO SCH (09:27)
[2018-03-03] MEDS: Potassium Chlor TAB* 10 MEQ TAB.ER PO SCH ×3 (09:27→21:37)
[2018-03-03] MEDS: Piperacillin/Tazobac ADVAN(*) 3.375 GM in NS 0.9% 100 ML* 100 ML IVPB SCH ×2 (09:29→18:46)
[2018-03-03] MEDS ORDERED: Magnesium Sulfate IV* 3 GM in NS 0.9% 100 ML* 100 ML IVPB ONE (17:02)
--- NOTE | 2018-03-03 17:23 | PN ---
Subjective Date of Service: 03/03/18 Interval History: patient reports she is feeling better today and is able to open her left eye more. She denies eye pain or drainage. No fevers or chills. Reports good appetite. Pain is controlled Family History: Findings - M had colon cancer, daughter had melanoma. F unknown cause. Social History: Findings - Quit smoking many yrs ago. Works part-time. Lives with her boyfriend Luis Galvin. He and her daughter Soraya are her SDM's. Past Medical History: Findings - Hysterectomy, D&C, 3 children Objective Active Medications: Acetaminophen (Tylenol Tab*) 650 mg PO Q4H PRN PRN Reason: PAIN Last Admin: 03/03/18 14:32 Dose: 650 mg Hydrocodone Bitart/Acetaminophen ([place] 5-325 Tab*) 1 tab PO QID PRN PRN Reason: PAIN Last Admin: 03/01/18 21:12 Dose: 1 tab Dextrose (D50w Syringe 50 Ml*) 12.5 gm IV PUSH .FOR FS < 60 - SS PRN PRN Reason: FS < 60 Enoxaparin Sodium (Lovenox(*)) 40 mg SUBCUT Q24H [facility] Last Admin: 03/02/18 16:40 Dose: 40 mg Piperacillin Sod/Tazobactam (Sod 3.375 gm/ Sodium Chloride) 100 mls @ 25 mls/ hr IVPB Q8H [facility] Last Admin: 03/03/18 09:29 Dose: 25 mls/hr Acyclovir Sodium 800 mg/ (Sodium Chloride) 266 mls @ 266 mls/hr IVPB Q8H [facility] Last Admin: 03/03/18 14:35 Dose: 266 mls/hr Magnesium Sulfate 3 gm/ Sodium (Chloride) 106 mls @ 53 mls/hr IVPB ONCE ONE Stop: 03/03/18 19:01 Insulin Human Lispro (Humalog*) 0 units SUBCUT ACHS [facility]; Protocol Last Admin: 03/03/18 12:56 Dose: Not Given Lisinopril (Prinivil Tab*) 10 mg PO DAILY [facility] Last Admin: 03/03/18 09:27 Dose: 10 mg Omeprazole (Prilosec Cap*) 20 mg PO DAILY@0600 [facility] Last Admin: 03/03/18 06:07 Dose: 20 mg Pharmacy Consult (Zosyn Per Pharmacy*) 1 note FOLLOW UP . PRN PRN Reason: PER PROTOCOL Potassium Chloride (Klor Con Er Tab*) 20 meq PO TID IRENE Stop: 03/04/18 08:59 Last Admin: 03/03/18 14:33 Dose: 20 meq Vital Signs - 8 hr 03/03/18 11:48 Temperature 97.9 F Pulse Rate 72 Respiratory 16 Rate Blood Pressure 139/66 (mmHg) O2 Sat by Pulse 98 Oximetry Oxygen Devices in Use Now: None Appearance: 67 yo female laying in bed in NAD. A+Ox3 Eyes: PERRLA, - - left eye olayinka-orbital edema. Ears/Nose/Mouth/Throat: NL Teeth, Lips, Gums, Mucous Membranes Moist Neck: NL Appearance and Movements; NL JVP Respiratory: Symmetrical Chest Expansion and Respiratory Effort, Clear to Auscultation Cardiovascular: NL Sounds; No Murmurs; No JVD, RRR, No Edema Abdominal: NL Sounds; No Tenderness; No Distention Extremities: No Edema, No Clubbing, Cyanosis Skin: - - vesicles in different stages of healing on forehead, most scabbed. no noted erythema over forehead, appears to be healing. Neurological: Alert and Oriented x 3, NL Sensation, NL Gait, NL Muscle Strength and Tone Lines/Tubes/Other Access: Clean, Dry and Intact Peripheral IV Nutrition: Taking PO's Result Diagrams: 03/03/18 06:32 03/03/18 06:32 Additional Lab and Data: Lab Results 03/01/18 03/01/18 03/01/18 Range/Units 15:00 15:00 15:00 WBC 10.8 (3.5-10.8) 10^3/ul RBC 4.39 (4.00-5.40) 10^6/ul Hgb 11.8 L (12.0-16.0) g/dl Hct 36 (35-47) % MCV 81 (80-97) fL MCH 27 (27-31) pg MCHC 33 (31-36) g/dl RDW 15 (10.5-15) % Plt Count 177 (150-450) 10^3/ul MPV 8.6 (7.4-10.4) um3 Neut % (Auto) 70.3 (38-83) % Lymph % (Auto) 15.3 L (25-47) % [place] % (Auto) 14.1 H (0-7) % Eos % (Auto) 0 (0-6) % Baso % (Auto) 0.3 (0-2) % Absolute Neuts (auto) 7.6 (1.5-7.7) 10^3/ul Absolute Lymphs (auto) 1.7 (1.0-4.8) 10^3/ul Absolute Monos (auto) 1.5 H (0-0.8) 10^3/ul Absolute Eos (auto) 0 (0-0.6) 10^3/ul Absolute Basos (auto) 0 (0-0.2) 10^3/ul Absolute Nucleated RBC 0 10^3/ul Nucleated RBC % 0 INR (Anticoag Therapy) 1.03 H (0.77-1.02) APTT 27.0 (26.0-36.3) seconds Sodium 133 L (135-145) mmol/L Potassium 3.2 L (3.5-5.0) mmol/L Chloride 93 L (101-111) mmol/L Carbon Dioxide 29 (22-32) mmol/L Anion Gap 11 (2-11) mmol/L BUN 15 (6-24) mg/dL Creatinine 0.88 (0.51-0.95) mg/dL Est GFR ( Amer) 78.0 (>60) Est GFR (Non-Af Amer) 64.5 (>60) BUN/Creatinine Ratio 17.0 (8-20) Glucose 128 H (70-100) mg/dL Lactic Acid (0.5-2.0) mmol/L Calcium 8.7 (8.6-10.3) mg/dL Total Bilirubin 0.30 (0.2-1.0) mg/dL AST 21 (13-39) U/L ALT 16 (7-52) U/L Alkaline Phosphatase 69 (34-104) U/L Troponin I 0.01 (<0.04) ng/mL C-Reactive Protein 31.95 H (<8.01) mg/L Total Protein 6.9 (6.4-8.9) g/dL Albumin 3.5 (3.2-5.2) g/dL Globulin 3.4 (2-4) g/dL Albumin/Globulin Ratio 1.0 (1-3) 06/30/18 Range/Units 15:00 WBC (3.5-10.8) 10^3/ul RBC (4.00-5.40) 10^6/ul Hgb (12.0-16.0) g/dl Hct (35-47) % MCV (80-97) fL MCH (27-31) pg MCHC (31-36) g/dl RDW (10.5-15) % Plt Count (150-450) 10^3/ul MPV (7.4-10.4) um3 Neut % (Auto) (38-83) % Lymph % (Auto) (25-47) % [place] % (Auto) (0-7) % Eos % (Auto) (0-6) % Baso % (Auto) (0-2) % Absolute Neuts (auto) (1.5-7.7) 10^3/ul Absolute Lymphs (auto) (1.0-4.8) 10^3/ul Absolute Monos (auto) (0-0.8) 10^3/ul Absolute Eos (auto) (0-0.6) 10^3/ul Absolute Basos (auto) (0-0.2) 10^3/ul Absolute Nucleated RBC 10^3/ul Nucleated RBC % INR (Anticoag Therapy) (0.77-1.02) APTT (26.0-36.3) seconds Sodium (135-145) mmol/L Potassium (3.5-5.0) mmol/L Chloride (101-111) mmol/L Carbon Dioxide (22-32) mmol/L Anion Gap (2-11) mmol/L BUN (6-24) mg/dL Creatinine (0.51-0.95) mg/dL Est GFR ( Amer) (>60) Est GFR (Non-Af Amer) (>60) BUN/Creatinine Ratio (8-20) Glucose (70-100) mg/dL Lactic Acid 1.4 (0.5-2.0) mmol/L Calcium (8.6-10.3) mg/dL Total Bilirubin (0.2-1.0) mg/dL AST (13-39) U/L ALT (7-52) U/L Alkaline Phosphatase (34-104) U/L Troponin I (<0.04) ng/mL C-Reactive Protein (<8.01) mg/L Total Protein (6.4-8.9) g/dL Albumin (3.2-5.2) g/dL Globulin (2-4) g/dL Albumin/Globulin Ratio (1-3) Microbiology and Other Data: Microbiology 03/01/18 15:00 Aerobic Blood Culture - Preliminary Blood Venous No Growth Day 2 Anaerobic Blood Culture - Preliminary No Growth Day 2 03/01/18 15:00 Aerobic Blood Culture - Preliminary Blood Venous No Growth Day 2 Anaerobic Blood Culture - Preliminary No Growth Day 2 Assess/Plan/Problems-Billing Assessment: 67 yo female with PMH with DMII noninsulin, HTN, HLD who presented on 03/01 with c/o left eye swelling and increased redness found to have zoster on her forehead with periorbital edema. - Patient Problems (1) Cellulitis of left orbit Comment: High suspicion for zoster as does not cross the midline. Continue IV acyclovir, pip/pan for cellulitis Left message for her primary Opthalmologist (Dr. Quinn) who saw her two days ago and was started on polymixin gtt. Awaiting call back from Dr. Mendosa on- call opth. ID consult pending Blood C&S NTD. Zoster IgM level to be sent out 03/03. Overall improving, can more easily open L eye. Repeat CBC 03/04. (2) Hypokalemia Comment: KCL increase to 20 meq tid - add on magnesium BMP 03/04. (3) Meningioma Comment: Seen on CT scan, diagnosis not certain. Small, asymptomatic, needs outpt eval with NS. (4) Diabetes Comment: FSBG with Lispro by SS, hold metformin. (5) Hypercholesterolemia Comment: - continue atorvastatin (6) Hypertension Comment: Controlled. Continue lisinopril. (7) DVT prophylaxis Comment: - Lovenox Q24hr Status and Disposition: inpatient requiring IV antibiotics and antiviral.
[2018-03-03] MEDS: Enoxaparin(*) 40 MG/0.4 ML SYR SUBCUT SCH (17:37)
[2018-03-03] MEDS ORDERED: NS 0.9% 100 ML* 100 ML ONE (18:32)
[2018-03-04] MEDS: Piperacillin/Tazobac ADVAN(*) 3.375 GM in NS 0.9% 100 ML* 100 ML IVPB SCH ×2 (00:13→07:58)
[2018-03-04] MEDS: Omeprazole CAP* 20 MG PO SCH (05:07)
[2018-03-04] MEDS: Acyclovir IV(*) 800 MG in NS 0.9% 250 ML* 250 ML IVPB SCH ×3 (05:09→20:39)
[2018-03-04 07:08] LABS: ABS Basophils 0.1 10^3/ul (0-0.2); ABS Eosinophils 0.1 10^3/ul (0-0.6); ABS Lymphocytes 2.7 10^3/ul (1.0-4.8); ABS Monocytes 0.8 10^3/ul (0-0.8); ABS Neutrophils 5.7 10^3/ul (1.5-7.7); ABS Nucleated RBC 0 10^3/ul; Eosinophil % 1.5 % (0-6); Hematocrit 29 % (35-47); Hemoglobin 9.6 g/dl (12.0-16.0); Lymphocyte % 28.3 % (25-47); Mean Corpuscular HGB Conc 33 g/dl (31-36); Mean Corpuscular Hemoglobin 27 pg (27-31); Mean Corpuscular Volume 82 fL (80-97); Mean Platelet Volume 8.9 um3 (7.4-10.4); Nucleated Red Blood Cells % 0.1; Platelet Count 173 10^3/ul (150-450); Red Blood Count 3.58 10^6/ul (4.00-5.40); Red Cell Distribution Width 15 % (10.5-15); White Blood Count 9.4 10^3/ul (3.5-10.8)
[2018-03-04] MEDS: Lisinopril TAB* 10 MG PO SCH (07:58)
[2018-03-04] MEDS: Insulin LISPRO* 1 UNITS UNIT SUBCUT SCH ×4 (08:04→20:39)
--- NOTE | 2018-03-04 08:55 | PN ---
Subjective Date of Service: 03/04/18 Interval History: . patient reports much less swelling today and can open her eye completely for the first time. She reports no pain or vision changes in her left eye. No fever or chills. Reports good appetite. Family History: Findings - M had colon cancer, daughter had melanoma. F unknown cause. Social History: Findings - Quit smoking many yrs ago. Works part-time. Lives with her boyfriend Luis Galvin. He and her daughter Soraya are her SDM's. Past Medical History: Findings - Hysterectomy, D&C, 3 children Objective Active Medications: Acetaminophen (Tylenol Tab*) 650 mg PO Q4H PRN PRN Reason: PAIN Last Admin: 03/03/18 21:37 Dose: 650 mg Hydrocodone Bitart/Acetaminophen ([place] 5-325 Tab*) 1 tab PO QID PRN PRN Reason: PAIN Last Admin: 03/01/18 21:12 Dose: 1 tab Dextrose (D50w Syringe 50 Ml*) 12.5 gm IV PUSH .FOR FS < 60 - SS PRN PRN Reason: FS < 60 Enoxaparin Sodium (Lovenox(*)) 40 mg SUBCUT Q24H [facility] Last Admin: 03/03/18 17:37 Dose: 40 mg Piperacillin Sod/Tazobactam (Sod 3.375 gm/ Sodium Chloride) 100 mls @ 25 mls/ hr IVPB Q8H [facility] Last Admin: 03/04/18 07:58 Dose: 25 mls/hr Acyclovir Sodium 800 mg/ (Sodium Chloride) 266 mls @ 266 mls/hr IVPB Q8H [facility] Last Admin: 03/04/18 05:09 Dose: 266 mls/hr Insulin Human Lispro (Humalog*) 0 units SUBCUT ACHS [facility]; Protocol Last Admin: 03/04/18 08:04 Dose: Not Given Lisinopril (Prinivil Tab*) 10 mg PO DAILY [facility] Last Admin: 03/04/18 07:58 Dose: 10 mg Omeprazole (Prilosec Cap*) 20 mg PO DAILY@0600 [facility] Last Admin: 03/04/18 05:07 Dose: 20 mg Pharmacy Consult (Zosyn Per Pharmacy*) 1 note FOLLOW UP . PRN PRN Reason: PER PROTOCOL Potassium Chloride (Klor Con Er Tab*) 20 meq PO TID [facility] Stop: 03/04/18 08:59 Last Admin: 03/03/18 21:37 Dose: 20 meq Vital Signs - 8 hr 03/04/18 03/04/18 03:38 07:44 Temperature 97.4 F 98.2 F Pulse Rate 67 68 Respiratory 16 16 Rate Blood Pressure 147/54 143/57 (mmHg) O2 Sat by Pulse 100 96 Oximetry Oxygen Devices in Use Now: None Appearance: 67 yo female sitting up in bed A+O x3 in NAD Eyes: No Scleral Icterus, PERRLA, - - left eye is injected some crusted on the eye lids - EOM intact Ears/Nose/Mouth/Throat: NL Teeth, Lips, Gums, Mucous Membranes Moist Neck: NL Appearance and Movements; NL JVP Respiratory: Symmetrical Chest Expansion and Respiratory Effort, Clear to Auscultation Cardiovascular: NL Sounds; No Murmurs; No JVD, RRR, No Edema Abdominal: NL Sounds; No Tenderness; No Distention Extremities: No Clubbing, Cyanosis Skin: - - forehead has healing vesicles that are scabbed, no erythema, eye is much less swollen today and open Neurological: Alert and Oriented x 3, NL Sensation, NL Muscle Strength and Tone Result Diagrams: 03/04/18 06:20 03/04/18 06:19 Additional Lab and Data: Lab Results 03/01/18 03/01/18 03/01/18 Range/Units 15:00 15:00 15:00 WBC 10.8 (3.5-10.8) 10^3/ul RBC 4.39 (4.00-5.40) 10^6/ul Hgb 11.8 L (12.0-16.0) g/dl Hct 36 (35-47) % MCV 81 (80-97) fL MCH 27 (27-31) pg MCHC 33 (31-36) g/dl RDW 15 (10.5-15) % Plt Count 177 (150-450) 10^3/ul MPV 8.6 (7.4-10.4) um3 Neut % (Auto) 70.3 (38-83) % Lymph % (Auto) 15.3 L (25-47) % Mccone % (Auto) 14.1 H (0-7) % Eos % (Auto) 0 (0-6) % Baso % (Auto) 0.3 (0-2) % Absolute Neuts (auto) 7.6 (1.5-7.7) 10^3/ul Absolute Lymphs (auto) 1.7 (1.0-4.8) 10^3/ul Absolute Monos (auto) 1.5 H (0-0.8) 10^3/ul Absolute Eos (auto) 0 (0-0.6) 10^3/ul Absolute Basos (auto) 0 (0-0.2) 10^3/ul Absolute Nucleated RBC 0 10^3/ul Nucleated RBC % 0 INR (Anticoag Therapy) 1.03 H (0.77-1.02) APTT 27.0 (26.0-36.3) seconds Sodium 133 L (135-145) mmol/L Potassium 3.2 L (3.5-5.0) mmol/L Chloride 93 L (101-111) mmol/L Carbon Dioxide 29 (22-32) mmol/L Anion Gap 11 (2-11) mmol/L BUN 15 (6-24) mg/dL Creatinine 0.88 (0.51-0.95) mg/dL Est GFR ( Amer) 78.0 (>60) Est GFR (Non-Af Amer) 64.5 (>60) BUN/Creatinine Ratio 17.0 (8-20) Glucose 128 H (70-100) mg/dL Lactic Acid (0.5-2.0) mmol/L Calcium 8.7 (8.6-10.3) mg/dL Total Bilirubin 0.30 (0.2-1.0) mg/dL AST 21 (13-39) U/L ALT 16 (7-52) U/L Alkaline Phosphatase 69 (34-104) U/L Troponin I 0.01 (<0.04) ng/mL C-Reactive Protein 31.95 H (<8.01) mg/L Total Protein 6.9 (6.4-8.9) g/dL Albumin 3.5 (3.2-5.2) g/dL Globulin 3.4 (2-4) g/dL Albumin/Globulin Ratio 1.0 (1-3) /30/18 Range/Units 15:00 WBC (3.5-10.8) 10^3/ul RBC (4.00-5.40) 10^6/ul Hgb (12.0-16.0) g/dl Hct (35-47) % MCV (80-97) fL MCH (27-31) pg MCHC (31-36) g/dl RDW (10.5-15) % Plt Count (150-450) 10^3/ul MPV (7.4-10.4) um3 Neut % (Auto) (38-83) % Lymph % (Auto) (25-47) % Mccone % (Auto) (0-7) % Eos % (Auto) (0-6) % Baso % (Auto) (0-2) % Absolute Neuts (auto) (1.5-7.7) 10^3/ul Absolute Lymphs (auto) (1.0-4.8) 10^3/ul Absolute Monos (auto) (0-0.8) 10^3/ul Absolute Eos (auto) (0-0.6) 10^3/ul Absolute Basos (auto) (0-0.2) 10^3/ul Absolute Nucleated RBC 10^3/ul Nucleated RBC % INR (Anticoag Therapy) (0.77-1.02) APTT (26.0-36.3) seconds Sodium (135-145) mmol/L Potassium (3.5-5.0) mmol/L Chloride (101-111) mmol/L Carbon Dioxide (22-32) mmol/L Anion Gap (2-11) mmol/L BUN (6-24) mg/dL Creatinine (0.51-0.95) mg/dL Est GFR ( Amer) (>60) Est GFR (Non-Af Amer) (>60) BUN/Creatinine Ratio (8-20) Glucose (70-100) mg/dL Lactic Acid 1.4 (0.5-2.0) mmol/L Calcium (8.6-10.3) mg/dL Total Bilirubin (0.2-1.0) mg/dL AST (13-39) U/L ALT (7-52) U/L Alkaline Phosphatase (34-104) U/L Troponin I (<0.04) ng/mL C-Reactive Protein (<8.01) mg/L Total Protein (6.4-8.9) g/dL Albumin (3.2-5.2) g/dL Globulin (2-4) g/dL Albumin/Globulin Ratio (1-3) Microbiology and Other Data: Microbiology 03/01/18 15:00 Aerobic Blood Culture - Preliminary Blood Venous No Growth Day 2 Anaerobic Blood Culture - Preliminary No Growth Day 2 03/01/18 15:00 Aerobic Blood Culture - Preliminary Blood Venous No Growth Day 2 Anaerobic Blood Culture - Preliminary No Growth Day 2 Assess/Plan/Problems-Billing Assessment: 67 yo female with PMH with DMII noninsulin, HTN, HLD who presented on 03/01 with c/o left eye swelling and increased redness found to have zoster on her forehead with periorbital edema. - Patient Problems (1) Cellulitis of left orbit Comment: Overall improvement High suspicion for zoster as does not cross the midline. Continue IV acyclovir , Appreciate ID, ok to DC pip/pan, continue acyclovir Iv for now and start PO Valtrex tomorrow x 1 week. Spoke with primary Opthalmologist Dr. Quinn who doesnt recommend any further treatment other than what she is currently recieving. Will need close follow up after discharge for a eye exam. Blood C&S NTD. Zoster IgM level to be sent out 03/03. (2) Hypokalemia Comment: Resolved with replacement, and replecement of magnesium (3) Meningioma Comment: Seen on CT scan, diagnosis not certain. Small, asymptomatic, needs outpt eval with NS. (4) Diabetes Comment: FSBG with Lispro by SS, hold metformin. (5) Hypercholesterolemia Comment: - continue atorvastatin (6) Hypertension Comment: Controlled. Continue lisinopril. (7) DVT prophylaxis Comment: - Lovenox Q24hr Status and Disposition: inpatient requiring IV antibiotics and antiviral. Tentative plan for DC to home
[2018-03-04] MEDS: Potassium Chlor TAB* 20 MEQ TAB.ER PO SCH ×2 (10:24→20:39)
--- NOTE | 2018-03-04 15:33 | CONS ---
CONSULTATION REPORT: DATE OF CONSULT: 03/04/18 REQUESTING PROVIDER: Radha Jamison NP CONSULTING SERVICE: Infectious disease. REASON FOR CONSULT: Herpes zoster ophthalmicus. IMPRESSION: 1. Herpes zoster ophthalmicus with conjunctivitis on the left. She had blurred vision that is impro ving as is the swelling on her orbit. 2. Type 2 diabetes, which may have contributed to this illness developing. 3. PENICILLIN allergy. RECOMMENDATIONS: Stop Zosyn and continue acyclovir. Tomorrow, we will switch her to Valtrex 1 g by mouth twice a day for another week. She is going to follow up with Ophthalmology. HISTORY OF PRESENT ILLNESS: This is a 67-year-old woman with diabetes, obesity, left eye pain and sw elling. This developed over the last few days. She had a tingling pain in her left forehead and the eyelid started swelling. The eye got irritated and red with some fevers and chills that came on a c ouple of days later, so I let her come to the hospital because of worsening swelling. She had had so me crusted lesions on her forehead, at that time she was started on IV acyclovir and Zosyn. On 03/01, brain CT showed a meningioma. Blood cultures have been negative. Today, she finally has had so me relief in the swelling around the orbit and can open the left eye a little bit and vision is a lit tle less blurry. She has no pain with eye movement. PAST MEDICAL HISTORY: 1. Type 2 diabetes. 2. Obesity. 3. Hypertension. FAMILY HISTORY: No recurrent infections. SOCIAL HISTORY: She lives in [place] with her boyfriend. She has no travel. 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 REVIEW OF SYSTEMS: All negative except as noted above, 12-point review of systems. PHYSICAL EXAM: Vital Signs: Temperature is 37, heart rate 70, respiratory rate 17, blood pressure 1 40/56, and oxygen saturation 97% on room air. In general, she is awake, not in distress. Neurologic : She is oriented x3, follows all commands, moves all extremities. Extraocular movements intact. H EENT: There is left-sided conjunctivitis. There is demarcated erythema in the left forehead down th rough around the orbit. Does not extend to the tip of the nose. There are some crusted lesions thro ughout that distribution, which are tender. Neck is supple without mass. Lymph Nodes: There are no cervical, supraclavicular, inguinal, axillary, or epitrochlear lymphadenopathy. Heart: Regular rat e and rhythm without murmurs, rubs, or gallops. Lungs are clear to auscultation bilaterally. Abdome n: Soft, nontender, and nondistended. Bowel sounds present. Skin: There are no other rash or spli nter hemorrhages. Musculoskeletal: No spinous tenderness to palpation. No joint synovitis. LABORATORY DATA: Creatinine 0.7. White blood cell count 9, hemoglobin 9, platelets 173, MCV 82. Please see impressions and recommendations as outlined above. I have discussed with Radha Jamison NP. Thanks for asking me to see Ms. Yang in consultation. [id number]/[facility] #: [id number]
[2018-03-04] MEDS: Enoxaparin(*) 40 MG/0.4 ML SYR SUBCUT SCH (17:20)
[2018-03-04] MEDS: Acetaminophen TAB* 325 MG PO PRN (20:38)
[2018-03-05] MEDS ORDERED: Melatonin 3 MG TAB PO ONE (02:36)
[2018-03-05] MEDS: Acyclovir IV(*) 800 MG in NS 0.9% 250 ML* 250 ML IVPB SCH (03:14)
[2018-03-05] MEDS: Omeprazole CAP* 20 MG PO SCH (05:48)
[2018-03-05] MEDS: Insulin LISPRO* 1 UNITS UNIT SUBCUT SCH (08:01)
[2018-03-05 08:07] VITALS: BP 148/69
[2018-03-05] MEDS: Lisinopril TAB* 10 MG PO SCH (08:29)
--- NOTE | 2018-03-05 08:56 | DCNOTE ---
Subjective Date of Service: 03/05/18 Family History: Findings - M had colon cancer, daughter had melanoma. F unknown cause. Social History: Findings - Quit smoking many yrs ago. Works part-time. Lives with her boyfriend Luis Galvin. He and her daughter Soraya are her SDM's. Past Medical History: Findings - Hysterectomy, D&C, 3 children Objective Active Medications: Acetaminophen (Tylenol Tab*) 650 mg PO Q4H PRN PRN Reason: PAIN Last Admin: 03/04/18 20:38 Dose: 650 mg Hydrocodone Bitart/Acetaminophen ([place] 5-325 Tab*) 1 tab PO QID PRN PRN Reason: PAIN Last Admin: 03/01/18 21:12 Dose: 1 tab Dextrose (D50w Syringe 50 Ml*) 12.5 gm IV PUSH .FOR FS < 60 - SS PRN PRN Reason: FS < 60 Enoxaparin Sodium (Lovenox(*)) 40 mg SUBCUT Q24H [facility] Last Admin: 03/04/18 17:20 Dose: 40 mg Acyclovir Sodium 800 mg/ (Sodium Chloride) 266 mls @ 266 mls/hr IVPB Q8H [facility] Last Admin: 03/05/18 03:14 Dose: 266 mls/hr Insulin Human Lispro (Humalog*) 0 units SUBCUT [facility]; Protocol Last Admin: 03/05/18 08:01 Dose: Not Given Lisinopril (Prinivil Tab*) 10 mg PO DAILY [facility] Last Admin: 03/05/18 08:29 Dose: 10 mg Omeprazole (Prilosec Cap*) 20 mg PO DAILY@0600 [facility] Last Admin: 03/05/18 05:48 Dose: 20 mg Pharmacy Consult (Zosyn Per Pharmacy*) 1 note FOLLOW UP . PRN PRN Reason: PER PROTOCOL Potassium Chloride (Klor Con Er Tab*) 20 meq PO BID [facility] Stop: 03/05/18 08:59 Last Admin: 03/04/18 20:39 Dose: 20 meq Vital Signs - 8 hr 03/05/18 03/05/18 03/05/18 03:39 07:35 08:07 Temperature 98.6 F 98.4 F Pulse Rate 70 75 Respiratory 18 18 16 Rate Blood Pressure 146/65 148/69 (mmHg) O2 Sat by Pulse 96 97 Oximetry Oxygen Devices in Use Now: None Result Diagrams: 03/04/18 06:20 03/04/18 06:19 Additional Lab and Data: Lab Results 03/01/18 03/01/18 03/01/18 Range/Units 15:00 15:00 15:00 WBC 10.8 (3.5-10.8) 10^3/ul RBC 4.39 (4.00-5.40) 10^6/ul Hgb 11.8 L (12.0-16.0) g/dl Hct 36 (35-47) % MCV 81 (80-97) fL MCH 27 (27-31) pg MCHC 33 (31-36) g/dl RDW 15 (10.5-15) % Plt Count 177 (150-450) 10^3/ul MPV 8.6 (7.4-10.4) um3 Neut % (Auto) 70.3 (38-83) % Lymph % (Auto) 15.3 L (25-47) % [facility] % (Auto) 14.1 H (0-7) % Eos % (Auto) 0 (0-6) % Baso % (Auto) 0.3 (0-2) % Absolute Neuts (auto) 7.6 (1.5-7.7) 10^3/ul Absolute Lymphs (auto) 1.7 (1.0-4.8) 10^3/ul Absolute Monos (auto) 1.5 H (0-0.8) 10^3/ul Absolute Eos (auto) 0 (0-0.6) 10^3/ul Absolute Basos (auto) 0 (0-0.2) 10^3/ul Absolute Nucleated RBC 0 10^3/ul Nucleated RBC % 0 INR (Anticoag Therapy) 1.03 H (0.77-1.02) APTT 27.0 (26.0-36.3) seconds Sodium 133 L (135-145) mmol/L Potassium 3.2 L (3.5-5.0) mmol/L Chloride 93 L (101-111) mmol/L Carbon Dioxide 29 (22-32) mmol/L Anion Gap 11 (2-11) mmol/L BUN 15 (6-24) mg/dL Creatinine 0.88 (0.51-0.95) mg/dL Est GFR ( Amer) 78.0 (>60) Est GFR (Non-Af Amer) 64.5 (>60) BUN/Creatinine Ratio 17.0 (8-20) Glucose 128 H (70-100) mg/dL Lactic Acid (0.5-2.0) mmol/L Calcium 8.7 (8.6-10.3) mg/dL Total Bilirubin 0.30 (0.2-1.0) mg/dL AST 21 (13-39) U/L ALT 16 (7-52) U/L Alkaline Phosphatase 69 (34-104) U/L Troponin I 0.01 (<0.04) ng/mL C-Reactive Protein 31.95 H (<8.01) mg/L Total Protein 6.9 (6.4-8.9) g/dL Albumin 3.5 (3.2-5.2) g/dL Globulin 3.4 (2-4) g/dL Albumin/Globulin Ratio 1.0 (1-3) //18 Range/Units 15:00 WBC (3.5-10.8) 10^3/ul RBC (4.00-5.40) 10^6/ul Hgb (12.0-16.0) g/dl Hct (35-47) % MCV (80-97) fL MCH (27-31) pg MCHC (31-36) g/dl RDW (10.5-15) % Plt Count (150-450) 10^3/ul MPV (7.4-10.4) um3 Neut % (Auto) (38-83) % Lymph % (Auto) (25-47) % [facility] % (Auto) (0-7) % Eos % (Auto) (0-6) % Baso % (Auto) (0-2) % Absolute Neuts (auto) (1.5-7.7) 10^3/ul Absolute Lymphs (auto) (1.0-4.8) 10^3/ul Absolute Monos (auto) (0-0.8) 10^3/ul Absolute Eos (auto) (0-0.6) 10^3/ul Absolute Basos (auto) (0-0.2) 10^3/ul Absolute Nucleated RBC 10^3/ul Nucleated RBC % INR (Anticoag Therapy) (0.77-1.02) APTT (26.0-36.3) seconds Sodium (135-145) mmol/L Potassium (3.5-5.0) mmol/L Chloride (101-111) mmol/L Carbon Dioxide (22-32) mmol/L Anion Gap (2-11) mmol/L BUN (6-24) mg/dL Creatinine (0.51-0.95) mg/dL Est GFR ( Amer) (>60) Est GFR (Non-Af Amer) (>60) BUN/Creatinine Ratio (8-20) Glucose (70-100) mg/dL Lactic Acid 1.4 (0.5-2.0) mmol/L Calcium (8.6-10.3) mg/dL Total Bilirubin (0.2-1.0) mg/dL AST (13-39) U/L ALT (7-52) U/L Alkaline Phosphatase (34-104) U/L Troponin I (<0.04) ng/mL C-Reactive Protein (<8.01) mg/L Total Protein (6.4-8.9) g/dL Albumin (3.2-5.2) g/dL Globulin (2-4) g/dL Albumin/Globulin Ratio (1-3) Microbiology and Other Data: Microbiology 03/01/18 15:00 Aerobic Blood Culture - Preliminary Blood Venous No Growth Day 2 Anaerobic Blood Culture - Preliminary No Growth Day 2 03/01/18 15:00 Aerobic Blood Culture - Preliminary Blood Venous No Growth Day 2 Anaerobic Blood Culture - Preliminary No Growth Day 2 Assess/Plan/Problems-Billing Assessment: 67 yo female with PMH with DMII noninsulin, HTN, HLD who presented on 03/01 with c/o left eye swelling and increased redness found to have zoster on her forehead with periorbital edema. - Patient Problems (1) Cellulitis of left orbit Comment: Overall improvement High suspicion for zoster as does not cross the midline. Continue IV acyclovir , Appreciate ID, ok to DC pip/pan, continue acyclovir Iv for now and start PO Valtrex tomorrow x 1 week. Spoke with primary Opthalmologist Dr. Quinn who doesnt recommend any further treatment other than what she is currently recieving. Will need close follow up after discharge for a eye exam. Blood C&S NTD. Zoster IgM level to be sent out 03/03. (2) Hypokalemia Comment: Resolved with replacement, and replecement of magnesium (3) Meningioma Comment: Seen on CT scan, diagnosis not certain. Small, asymptomatic, needs outpt eval with NS. (4) Diabetes Comment: FSBG with Lispro by SS, hold metformin. (5) Hypercholesterolemia Comment: - continue atorvastatin (6) Hypertension Comment: Controlled. Continue lisinopril. (7) DVT prophylaxis Comment: - Lovenox Q24hr Status and Disposition: inpatient requiring IV antibiotics and antiviral. Tentative plan for DC to home
--- NOTE | 2018-03-05 16:43 | DS ---
CC: Dr. Delvin Alcantar* DISCHARGE SUMMARY: DATE OF ADMISSION: 03/01/18 DATE OF DISCHARGE: 03/05/18 PROVIDER: Sulema Erazo NP ATTENDING PHYSICIAN: Dr. Babcock* (report dictated by Sulema Erazo NP). PRIMARY CARE PROVIDER: Dr. Delvin Alcantar. TRAFFIC OFFICER: Dr. Epps. HOSPITAL STATUS: Inpatient. DISCHARGE DIAGNOSES: 1. Herpes zoster ophthalmicus with conjunctivitis in the left eye. 2. Meningioma, CT of the brain on 03/01/18. SECONDARY DIAGNOSIS: Type 2 diabetes. DISCHARGE MEDICATIONS: 1. Metformin 500 mg p.o. b.i.d. 2. Lorcet 5/325 mg 1 tab p.o. four times a day p.r.n., max daily dose 4 tabs. 3. Atorvastatin 20 mg p.o. daily. 4. Multivitamin with mineral 1 tab p.o. daily. 5. Lisinopril 10 mg p.o. daily. 6. Prevacid 30 mg p.o. daily. 7. Valtrex 1 g p.o. b.i.d. for 1 week. HISTORY OF PRESENT ILLNESS AND HOSPITAL COURSE: Please see history and physical by Dr. Haynes for full admission details, but in summary this is a 67- year-old female, who presented to the emergency department on 03/01/18 with complaints of left eye redness in which she was currently being treated by her registered public surveyor for left conjunctivitis with polymyxin eye drops. On the day of admission, she reports the redness spread to her periorbital area and her scalp, and the pain worsened. Her left eye was completely swollen and closed. She developed vesicle-like lesions on her forehead, which did not cross the midline. She was started on IV acyclovir, highly suspicious for herpes zoster ophthalmicus. She has done well over the course of her hospitalization. Currently, on discharge, her eye is much less edematous. She has no vision changes. No pain in her eye. She does have some pain in which she reports over her forehead, but states this is well controlled at this time. She was initially treated with acyclovir and Zosyn due to concern of overlying cellulitis; this was discontinued yesterday. The patient's erythema over her left eye and forehead has greatly improved. I spoke with registered public surveyor, Dr. Epps, who will see the patient tomorrow in followup. No recommendation for steroid eye drops at this time. As well, Dr. Herr, Infectious Disease saw the patient yesterday and recommends the patient being discharged home on Valtrex 1 g p.o. b.i.d. for 1 week. The patient did have a brain CT in the emergency department, which did show meningioma, diagnosis not certain, appears to be small and she will need an outpatient evaluation with Neurosurgery. She is to discuss this with her primary care provider. She is asymptomatic. Neurological exam intact. The patient is antsy to go home today. She reports that she feels much better. No recent fevers or chills. Her labs are fairly unremarkable. She has a followup appointment with Dr. Epps tomorrow in his office. She is to follow up with her primary care provider within a week. DISCHARGE PLAN: 1. Discharge to home today. 2. Follow up with Dr. Epps tomorrow in his office. She had a previously scheduled appointment. 3. Follow up with Dr. Alcantar within 1 week. 4. She will need to follow up with Neurosurgery regarding possible meningioma seen on her CT scan. TIME SPENT: Approximately 60 minutes was spent on this discharge. SULEMA ERAZO, COBY [id number]/[facility] #: [id number] HANY
== END 2018-03-05 10:20 | disposition home or self-care (01) | DRG 125 ==
LOC: ED 13:09 → MED 16:00
PROVIDERS: ADMIT Internal Medicine; ATTEND Internal Medicine
DX: B02.31 Zoster conjunctivitis (principal); H05.012 Cellulitis of left orbit; E11.9 Type 2 diabetes mellitus without complications; I10 Essential (primary) hypertension; H57.8 Other specified disorders of eye and adnexa; D32.0 Benign neoplasm of cerebral meninges; H05.222 Edema of left orbit; E87.6 Hypokalemia; E78.00 Pure hypercholesterolemia, unspecified; E66.9 Obesity, unspecified; Z80.0 Family history of malignant neoplasm of digestive organs; Z80.8 Family history of malignant neoplasm of other organs or systems; Z88.6 Allergy status to analgesic agent; Z79.84 Long term (current) use of oral hypoglycemic drugs; Z88.0 Allergy status to penicillin; Z82.49 Family history of ischemic heart disease and other diseases of the circulatory system; Z83.3 Family history of diabetes mellitus; Z90.710 Acquired absence of both cervix and uterus; Z87.891 Personal history of nicotine dependence; Z68.36 Body mass index [BMI] 36.0-36.9, adult
CPT/HCPCS: 36415; 70450; 70486; 71045; 80048; 80053; 80202; 81003; 83605; 83735; 84484; 85025; 85610; 85730; 86140; 86787; 87040; 93005; 99212; 99285; A9270-GY; G0463; J0133; J0696; J1650; J2543; J3370; J3475

== ENCOUNTER 2018-05-24 09:47 | Emergency (ER) | payer MEDICARE ==
--- OUTSIDE RECORDS SUMMARY | 2018-05-24 09:52 | XMS REPORT | Continuity of Care Document ---
:1950 External Reference #:[id number] Author Name Jacques Valle, OD Address [address] [place] [address] Care Team Providers Name Role Phone Delvin Alcantar MD Care Team Information Superintendent Institution Unavailable Delvin Alcantar MD Primary Care Physician Unavailable Payers Type Date Identification Numbers Payment Provider Subscriber Policy Number: [id number] [facility] Argelia Yang PayID: [id number] [address] [address] [place] [address] Expires: 2017 Policy Number: [id number] [facility] Argelia Yang PayID: [id number] [address] [address] [place] [address] Advance Directives Description No Information Available Problems Date Description Provider Status Onset: 08/08/2015 Pigmentary glaucoma Layo Epps M.D. Active Onset: 05/06/2015 Chronic allergic conjunctivitis Layo Epps M.D. Active Onset: 06/26/2014 Nuclear senile cataract Layo Epps M.D. 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 Active Onset: 06/26/2014 Corneal endothelial dystrophy Layo Epps M.D. Active Family History Date Family Member(s) Problem(s) Comments General High BP General Brother, Sister Father Arthritis Father Diabetes Mother Arthritis Mother Cancer Social History Type Date Description Comments Sex Unknown ETOH Use Denies alcohol use Tobacco Use Start: Unknown End: Unknown Patient is a former smoker Smoking Status Reviewed: 05/23/18 Patient is a former smoker Allergies, Adverse Reactions, Alerts Date Description Reaction Status Severity Comments 06/26/2014 Penicillin Active 06/26/2014 Motrin Active Medications Medication Date Status Form Strength Qnty SIG Indications Ordering Provider Pred Forte 05/22/ Active Suspension 1% 5ml one drop Jacques 2018 four Valle, times a OD day left eye x 1 week, then taper as directed Fluorometholone 05/16/ Active Suspension 0.1% 10ml 1gtt tid Jacques 2017 OS x 1 Valle, week, OD then taper as directed Cyclopentolate 05/16/ Active Solution 1% 2ml 1 drop Jacques HCL 2018 left eye Valle, bid x 1 OD week Latanoprost 10/02/ Active Solution 0.005% 7.5ml 1 drops Jacques 2018 both eyes Valle, every OD night Omeprazole 00// Active Tablets DR Unknown 0000 Lisinopril 00/ Active Tablets Unknown 0000 Meloxicam / Active Tablets 15mg Unknown 0000 Metformin HCL / Active Tablets 500mg Take One Unknown 0000 Tablet By Mouth Every Morning Valsartan-Hydroch / Active Tablets 160-12.5m Take One Unknown lorothiazide 0000 g Tablet By Mouth Every Day Atorvastatin / Active Tablets 20mg Take One Unknown Calcium 0000 Tablet By Mouth Every Day Terbinafine HCL / Active Tablets 250mg Take One Unknown 0000 Tablet By Mouth Every Day Valacyclovir HCL / Active Tablets 500mg Unknown 0000 Pred Forte 03/06/ Hx Suspension 1% 10ml 1 drop Jacques 2017 - left eye Leonard, 04/04/ tid OS x OD 2018 1 week don't start until starting zirgan Zirgan 03/06/ Hx Gel 0.15% 5gm 1/4" Jacques 2017 - ribbon Valle, 04/04/ applied OD 2018 to ocular surface 5x/day left eye x 1 week Polytrim 02/26/ Hx Solution 74555-1.1 1bott 1gtt left H10.012 Layo 2018 - Unit/ML-% le eye four Epps, 03/06/ times a M.D. 2018 day Ketotifen 10/21/ Hx Solution 0.025% 5ml one drop Jacques Fumarate 2018 - bid OU Leonard, 05/23/ OD 2018 Azelastine HCL 10/02/ Hx Solution 0.05% 6ml one drop Jacques (Ophthalmic) 2018 - twice a Leonard, 10/21/ day both OD 2018 eyes Zaditor 10/02/ Hx Solution 0.025% 30ml one drop Jacques 2018 - bid OU Valle, 10/21/ 2018 Immunizations Description No Information Available Vital Signs Date Vital Result Comment 05/22/2018 9:06am Intraocular Pressure Left Eye 17 mmHg 05/16/2018 8:19am Intraocular Pressure Right Eye 18 mmHg Intraocular Pressure Left Eye 17 mmHg Cornea Thickness Left Eye 602 m Cornea Thickness Right Eye 610 m Pachymetry adjusted IOP Right Eye -4 Pachymetry adjusted IOP Left Eye -4 04/04/2018 11:25am Intraocular Pressure Right Eye 14 mmHg Intraocular Pressure Left Eye 19 mmHg 03/14/2018 2:41pm Intraocular Pressure Right Eye 15 mmHg Intraocular Pressure Left Eye 16 mmHg Cornea Thickness Left Eye 578 m Cornea Thickness Right Eye 607 m Pachymetry adjusted IOP Right Eye -2 Pachymetry adjusted IOP Left Eye -4 03/10/2018 8:09am Intraocular Pressure Left Eye 17 mmHg 03/10/2018 8:09am Intraocular Pressure Right Eye 16 mmHg 03/07/2018 3:11pm Intraocular Pressure Left Eye 16 mmHg Cornea Thickness Right Eye 803 m Pachymetry adjusted IOP Left Eye -7 03/06/2018 3:54pm Intraocular Pressure Left Eye 22 mmHg Cornea Thickness Left Eye 585 m Cornea Thickness Right Eye 891951 m Pachymetry adjusted IOP Right Eye -3 Pachymetry adjusted IOP Left Eye -7 02/13/2018 8:34am Intraocular Pressure Right Eye 15 mmHg Intraocular Pressure Left Eye 16 mmHg 11/13/2017 8:25am Intraocular Pressure Right Eye 14 mmHg Intraocular Pressure Left Eye 14 mmHg 10/02/2017 9:46am Intraocular Pressure Right Eye 22 mmHg Intraocular Pressure Left Eye 20 mmHg 05/10/2017 11:45am Intraocular Pressure Right Eye 21 mmHg Intraocular Pressure Left Eye 22 mmHg 11/02/2016 9:35am Intraocular Pressure Right Eye 21 mmHg Intraocular Pressure Left Eye 20 mmHg 08/08/2015 3:44pm Intraocular Pressure Right Eye 19 mmHg Intraocular Pressure Left Eye 17 mmHg Cornea Thickness Left Eye 599 m Cornea Thickness Right Eye 604 m Pachymetry adjusted IOP Right Eye -4 Pachymetry adjusted IOP Left Eye -4 05/06/2015 1:30pm Intraocular Pressure Right Eye 19 mmHg Intraocular Pressure Left Eye 19 mmHg 12/29/2014 10:03am Intraocular Pressure Right Eye 22 mmHg Intraocular Pressure Left Eye 20 mmHg 06/26/2014 10:13am Intraocular Pressure Right Eye 19 mmHg Intraocular Pressure Left Eye 19 mmHg Cornea Thickness Left Eye 621 m Cornea Thickness Right Eye 612 m Pachymetry adjusted IOP Right Eye -5 Pachymetry adjusted IOP Left Eye -4 Results Description No Information Available Procedures Date Code Description Status 05/16/2018 56820 Fundus Photography W/Interpretation & Report Completed 05/16/2018 77487 Eye Exam Est Intermediate Completed 05/16/2018 51999 Corneal Pachymetry, Unilateral/Bilateral Completed 03/06/2018 16870 Eye Exam Est Intermediate Completed 03/06/2018 01685 Corneal Pachymetry, Unilateral/Bilateral Completed 02/13/2018 40170 Eye Exam Est Intermediate Completed 10/02/2017 46582 Oct, Optic Nerve Completed 10/02/2017 11261 Eye Exam Est Intermediate Completed 05/10/2017 21822 Visual Field Exam Extended, Unilateral Or Bilateral Completed 05/10/2017 41422 Eye Exam Est Intermediate Completed 11/30/2016 11795 Oct, Optic Nerve Completed 11/30/2016 47384 Eye Exam Est Intermediate Completed 11/02/2016 62675 Eye Exam Est Intermediate Completed 11/02/2016 57550 Ophthalmoscopy Subsequent Completed 11/02/2016 83397 Fundus Photography W/Interpretation & Report Completed 01/24/2016 14665 Oct, Optic Nerve Completed 01/24/2016 76055 Oct, Optic Nerve Completed 08/08/2015 55881 Fundus Photography W/Interpretation & Report Completed 08/08/2015 90362 Refraction Completed 08/08/2015 38002 Eye Exam Est Comprehensive Completed 08/08/2015 22198 Corneal Pachymetry, Unilateral/Bilateral Completed 05/06/2015 70161 Visual Field Exam Extended, Unilateral Or Bilateral Completed 05/06/2015 32157 Eye Exam Est Intermediate Completed 12/29/2014 12256 Oct, Optic Nerve Completed 12/29/2014 43179 Eye Exam Est Intermediate Completed 06/26/2014 83065 Refraction Completed 06/26/2014 33777 Eye Exam New Comprehensive Completed 06/26/2014 35799 Corneal Pachymetry, Unilateral/Bilateral Completed Encounters Type Date Location Provider Dx Diagnosis Office Visit 05/22/2018 Main Office Jacques Valle, OD 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
--- OUTSIDE RECORDS SUMMARY | 2018-05-24 09:53 | XMS REPORT ---
:1950 External Reference #:[id number] Author Organization [employer] Address [address] [address] Phone [phone] Care Team Providers Name Role Phone Scott Nava MD Primary Care Physician Unavailable Payers Type Date Identification Numbers Payment Provider Subscriber Commercial Expires: Policy Number: [id number] [employer] Argelia Yang 2015 Medicaid PayID: [id number] [address] [address] [place] [address] Medigap Part B Expires: 2017 Policy Number: [employer] Argelia Yang [id number] PayID: [id number] [address] [address] [place] [address] Health Maintenance Policy Number: [facility] Medicare Argelia Waters (HMO) [id number] Solutions PayID: [id number] [address] [address] [place] [address] Problems Date Description Provider Status Onset: 05/02/2018 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 Retired Cigarette Use Former Cigarette Smoker quit 2006 ETOH Use Denies alcohol use Smoking Patient is a former smoker smoked for 30 years 1/2 pack to 1 pack per day, quit in 2006 Recreational Drug Use Denies Drug Use Daily Caffeine Consumes on average 1 cup of regular coffee per day Exercise Type/Frequency Exercises rarely Allergies, Adverse Reactions, Alerts Date Description Reaction Status Severity Comments 09/07/2015 Penicillin active 09/07/2015 Motrin dizziness active name brand Medications Medication Date Status Form Strength Qnty SIG Indications Ordering Provider Multivitamins Active Capsules 1 by Unknown 000 mouth every day Lisinopril Active Tablets 10mg 1 by Unknown 000 mouth every day Atorvastatin Active Tablets 20mg take 1 Unknown Calcium 000 tablet at bedtime On Hold Omeprazole Active Unknown 000 Metformin HCL Active Tablets 500mg 1 by Unknown 000 mouth daily Gabapentin Active Capsules 300mg 1 by Unknown 000 mouth two times a day Prevacid Hx Capsules 15mg once Unknown 000 - DR daily 016 Ibuprofen Hx 2 po prn Unknown 000 - for pain 018 Vital Signs Date Vital Result Comment 05/02/2018 Height 65.25 inches 5'5.25" Weight 230.00 lb BP Systolic Sitting 140 mmHg BP Diastolic Sitting 94 mmHg Pain Level 4 BMI (Body Mass Index) 38.0 kg/m2 10/12/2015 Height 65.25 inches 5'5.25" Weight 229.00 lb w/o shoes Heart Rate 72 /min reg BP Systolic Sitting 168 mmHg Rue, lg cuff BP Diastolic Sitting 100 mmHg Rue, lg cuff BP Systolic Standing 160 mmHg Rue BP Diastolic Standing 100 mmHg Rue Respiratory Rate 18 /min BMI (Body Mass Index) 37.8 kg/m2 Ejection Fraction 55-60% as of 09/30/15 echo 09/09/2015 Height 65.25 inches 5'5.25" Weight 232.00 lb Heart Rate 68 /min BP Systolic 178 mmHg Ra Lg cuff (sitting) BP Diastolic 98 mmHg Ra Lg cuff (sitting) BP Systolic Sitting 172 mmHg LA Lg cuff BP Diastolic Sitting 106 mmHg LA Lg cuff BP Systolic Standing 170 mmHg LA Lg cuff BP Diastolic Standing 106 mmHg LA Lg cuff Respiratory Rate 16 /min BMI (Body Mass Index) 38.3 kg/m2 Ejection Fraction 55-60% 01/13/14 Results Test Date Test Result H/L Range Note Laboratory test finding 05/09/2017 Cytology Non-Doll Repairer SEE RESULT BELOW 1 1 SEE RESULT BELOW Name: ARGELIA YANG : [address]: Karlo Sanchez MD Acct: [id number] Unit: [id number] AGE: 66 Location: THYROID Re05/09/17 SEX: F Status: REG REF SPEC: [id number] ALEJANDRO: 05/09/17-[address] [facility] [address]: Karlo Sanchez MD REQ: [id number] RECD: 05/09/17-1099 STATUS: MIRZA RAE DR: Delvin Jasso MD _ ORDERED: FNA-IMG GUID BX/2, CY ADEQ-ADDL P, CYTO ADEQ-1ST P/2 FINAL DIAGNOSIS 1) Thyroid, right superior, Ultrasound guided, fine needle aspiration: Benign thyroid nodule-colloid/hyperplastic ([place] class II). 2) Thyroid right mid, Ultrasound guided, fine needle aspiration: Benign thyroid nodule-colloid/hyperplastic ([place] class II). 1) The specimen demonstrates abundant watery colloid, an abundant amount of benign appearing follicular epithelium arranged in uniform sheets, medium sized follicles and only occasional small groups. No features of papillary carcinoma are seen. In this clinical setting the risk of malignancy is less than 3%. Clinical management of this thyroid nodule should be based on clinical and radiographic features as well as the above. 2) The specimen demonstrates abundant watery colloid, an abundant amount of benign appearing follicular epithelium arranged in uniform sheets, medium sized follicles and only occasional small groups. No features of papillary carcinoma are seen. In this clinical setting the risk of malignancy is less than 3%. Clinical management of this thyroid nodule should be based on clinical and radiographic features as well as the above. CONTINUED ON NEXT PAGE * ML=Testing performed at Main Lab DEPARTMENT OF PATHOLOGY, [address] [place] [address] Barry Neumann M.D. Director [facility] # [id number] RUN DATE: 05/09/17 [facility] LAB LIVE PAGE 2 Patient: ARGELIA YANG [id number] (Continued) SPECIMEN(S) RECEIVED: (Continued) 1. THYROID RIGHT - RIGHT SUPERIOR, US GUIDED FINE NEEDLE ASPIRATION, 2. THYROID RIGHT - RIGHT MID US GUIDED FINE NEEDLE ASPIRATION CLINICAL HISTORY 1) Right superior nodule-1.3x 1.0x 1.0cm 2) Right mid nodule-1.0x .6x .9cm IMMEDIATE INTERPRETATION 1) Pass 1-Inadequate, Pass 2-adequate 2) Pass 1-adequate GROSS DESCRIPTION 1) 2 - alcohol fixed slide(s) 2 - passes 2) 1 - alcohol fixed slide(s) 1 - passes Signed (signature on file) Sejal Ambrocio MD 03/18 1058 END OF REPORT * ML=Testing performed at Main Lab DEPARTMENT OF PATHOLOGY, [address] [place] [address] Barry Neumann M.D. Director [facility] # [id number] Procedures Date CPT Code Description Status 09/30/2015 87601 ECHO Transthoracic, Real-Time 2D With Doppler And Color Completed Flow 09/09/2015 99024 EKG Tracing & Interpretation Completed 01/13/2014 72347 ECHO Transthorasic Realtime 2D W Doppler & Color Flow Completed Hosp Encounters Type Date Location Provider CPT E/M Dx Office Visit 05/02/2018 Neurosurgery Services Kun Meyers M.D. 16634 D33.3 10:20a Of [employer] Office Visit 03/05/2018 [facility], [place] [address] B02.31 9:03a Hospitalists E11.9 Office Visit 03/04/2018 1:10p [facility] John Rodriguez, [address] B02.31 Infectious Diseases Nancy E11.9 [facility]2018 [facility] [place] [address] E11.9 Hospitalists H05.012 E78.5 E87.6 Office Visit 03/03/2018 9:02a [facility] Radha Jamison, [address] H05.012 Ass, Hospitalists COBY E11.9 E78.5 E87.6 I10 Office Visit 03/02/2018 9[facility]02[facility] [place], [address] H05.012 Mk Cruz E11.9 I10 E87.6 Office Visit 03/01/2018 9[facility] [place] [address] H05.012 Mk Cruz E11.9 I10 Office Visit 10/12/2015 4:00p [facility] [place] [address] I10 FACC I65.29 F17.211 E78.5 E11.9 Office Visit 09/09/2015 3:40p [facility] [place] [address] R60.0 [facility] FAC R01.1 I65.29 I10 E78.5 F17.211 Plan of Care 05/02/2018 - Kun Meyers M.D.D33.3 Benign neoplasm of cranial nervesFollow up :Recommend repeat MRI of brain in 6 months. Patient to call for appt
--- OUTSIDE RECORDS SUMMARY | 2018-05-24 09:53 | XMS REPORT | Continuity of Care Document ---
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 Active Onset: 05/06/2015 Chronic allergic conjunctivitis Layo Epps M.D. Active Onset: 06/26/2014 Nuclear senile cataract Layo Epps M.D. 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 Active Onset: 06/26/2014 Corneal endothelial dystrophy Layo Epps M.D. Active Family History Date Family Member(s) Problem(s) Comments General High BP General Brother, Sister Father Arthritis Father Diabetes Mother Arthritis Mother Cancer Social History Type Date Description Comments Sex Unknown ETOH Use Denies alcohol use Tobacco Use Start: Unknown End: Unknown Patient is a former smoker Smoking Status Reviewed: 05/22/18 Patient is a former smoker Allergies, Adverse Reactions, Alerts Date Description Reaction Status Severity Comments 06/26/2014 Penicillin Active 06/26/2014 Motrin Active Medications Medication Date Status Form Strength Qnty SIG Indications Ordering Provider Pred Forte 09/20/ Active Suspension 1% 5ml one drop Jacques 2018 four Valle, times a OD day left eye x 1 week, then taper as directed Fluorometholone 05/16/ Active Suspension 0.1% 10ml 1gtt tid Jacques 2018 OS x 1 Valle, week, OD then taper as directed Cyclopentolate 05/16/ Active Solution 1% 2ml 1 drop Jacques HCL 2018 left eye Valle, bid x 1 OD week Ketotifen 10/21/ Active Solution 0.025% 5ml one drop Jacques Fumarate 2018 bid OU Valle, OD Latanoprost 10/02/ Active Solution 0.005% 7.5ml 1 drops Jacques 2018 both eyes Valle, every OD night Omeprazole 00/ Active Tablets DR Unknown 0000 Lisinopril / Active Tablets Unknown 0000 Meloxicam / Active [...] Hx Suspension 1% 10ml 1 drop Jacques 2018 - left eye Leonard, 04/04/ tid OS x OD 2018 1 week don't start until starting zirgan Zirgan 03/06/ Hx Gel 0.15% 5gm 09/05" Jacques 2017 - ribbon Leonard, 04/04/ applied OD 2018 to ocular surface 5x/day left eye x 1 week Polytrim 02/26/ Hx Solution 71748-3.1 1bott 1gtt left H10.012 Layo 2018 - Unit/ML-% le eye edith Epps, 03/06/ times a M.D. 2018 day Azelastine HCL 10/02/ Hx Solution 0.05% 6ml one drop Jacques (Ophthalmic) 2018 - twice a Leonard, 10/21/ day both OD 2018 eyes Zaditor 10/02/ Hx Solution 0.025% 30ml one drop Jacques 2017 - bid OU Valle, 02/19/ OD 2018 Immunizations Description No Information Available Vital [...] Eye 585 m Cornea Thickness Right Eye 232928 m Pachymetry adjusted IOP Right Eye -3 [...] Information Available Procedures Date Code Description Status 05/22/2018 22655 Eye Exam Est Intermediate Completed 05/16/2018 72112 Fundus Photography W/Interpretation & Report Completed 05/16/2018 63245 Eye Exam Est Intermediate Completed 05/16/2018 56746 Corneal Pachymetry, Unilateral/Bilateral Completed 03/06/2018 65449 Eye Exam Est Intermediate Completed 03/06/2018 90397 Corneal Pachymetry, Unilateral/Bilateral Completed 02/13/2018 63746 Eye Exam Est Intermediate Completed 10/02/2017 40352 Oct, Optic Nerve Completed 10/02/2017 27272 Eye Exam Est Intermediate Completed 05/10/2017 13452 Visual Field Exam Extended, Unilateral Or Bilateral Completed 05/10/2017 46872 Eye Exam Est Intermediate Completed 11/30/2016 59436 Oct, Optic Nerve Completed 11/30/2016 76101 Eye Exam Est Intermediate Completed 11/02/2016 25390 Eye Exam Est Intermediate Completed 11/02/2016 55762 Ophthalmoscopy Subsequent Completed 11/02/2016 52608 Fundus Photography W/Interpretation & Report Completed 01/24/2016 71899 Oct, Optic Nerve Completed 01/24/2016 25985 Oct, Optic Nerve Completed 08/08/2015 35405 Fundus Photography W/Interpretation & Report Completed 08/08/2015 64712 Refraction Completed 08/08/2015 20369 Eye Exam Est Comprehensive Completed 08/08/2015 67772 Corneal Pachymetry, Unilateral/Bilateral Completed 05/06/2015 86499 Visual Field Exam Extended, Unilateral Or Bilateral Completed 05/06/2015 08205 Eye Exam Est Intermediate Completed 12/29/2014 61462 Oct, Optic Nerve Completed 12/29/2014 56556 Eye Exam Est Intermediate Completed 06/26/2014 56429 Refraction Completed 06/26/2014 79389 Eye Exam New Comprehensive Completed 06/26/2014 49873 Corneal Pachymetry, Unilateral/Bilateral Completed Encounters Type Date Location Provider Dx Diagnosis Office Visit 04/04/2018 Main Office Layo Epps, B02.39 Other herpes zoster 11:15a M.D. 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 zoster eye [...] am - Jacques Valle, OD at Main Seeubg75 - Jacques Valle ODB02.39 Other herpes zoster eye mxhgcgiC92.1331 Pigmentary glaucoma, bilateral, mild stageFollow up:3-4 days f/u
--- OUTSIDE RECORDS SUMMARY | 2018-05-24 09:53 | XMS REPORT | Continuity of Care Document ---
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 Delvin Alcantar MD Primary Care Physician Unavailable Payers Type Date Identification Numbers Payment Provider Subscriber Policy Number: [id number] [employer] Argelia Yang PayID: [id number] [address] [address] [place] [address] Expires: 2017 Policy Number: [id number] [facility] Argelia Yang PayID: [id number] [address] [address] [place] [address] Advance Directives Description No Information Available Problems [...] is a former smoker Smoking Status Reviewed: 05/16/18 Patient is a former smoker Allergies, Adverse Reactions, Alerts Date Description Reaction Status Severity Comments 06/26/2014 Penicillin Active 06/26/2014 Motrin Active Medications Medication Date Status Form Strength Qnty SIG Indications Ordering Provider Ketotifen 10/21/ Active Solution 0.025% 5ml one drop Jacques Fumarate 2018 bid OU Leonard, OD Latanoprost 10/02/ Active Solution 0.005% 7.5ml 1 drops Jacques 2018 both eyes Valle, every OD night Omeprazole 00/00/ Active Tablets DR Unknown 0000 Lisinopril 00/00/ Active Tablets Unknown 0000 Meloxicam 0000/ Active Tablets 15mg Unknown 0000 Metformin HCL 0000/ Active Tablets 500mg Take One Unknown 0000 Tablet By Mouth Every Morning Valsartan-Hydr / Active Tablets 160-12.5mg Take One Unknown ochlorothiazid 0000 Tablet By e Mouth Every Day Atorvastatin / Active Tablets 20mg Take One Unknown Calcium 0000 Tablet By Mouth Every Day Terbinafine / Active Tablets 250mg Take One Unknown HCL 0000 Tablet By Mouth Every Day Valacyclovir / Active Tablets 500mg Unknown HCL 0000 Pred Forte 03/06/ Hx Suspension 1% 10ml 1 drop Jacques 2017 - left eye Leonard, 04/04/ tid OS x 1 OD 2018 week don't start until starting zirgan Zirgan 03/06/ Hx Gel 0.15% 5gm /" Jacques 2017 - ribbon Leonard, 04/04/ applied to OD 2018 ocular surface 5x/day left eye x 1 week Polytrim 02/26/ Hx Solution 97697-4.1U 1bottl 1gtt left H10.012 Layo 2018 - nit/ML-% e eye four Epps, 03/06/ times a M.D. 2018 day Azelastine HCL 10/02/ Hx Solution 0.05% 6ml one drop Jacques (Ophthalmic) 2018 - twice a Leonard, 10/21/ day both OD 2018 eyes Zaditor 10/02/ Hx Solution 0.025% 30ml one drop Jacuqes 2018 - bid OU Leonard, 10/21/ OD 2018 Immunizations Description No Information Available Vital Signs Date Vital Result Comment 05/16/2018 8:19am Intraocular Pressure Right Eye 18 mmHg Intraocular Pressure Left Eye 17 mmHg 04/04/2018 11:25am Intraocular Pressure Right Eye 14 [...] Eye 585 m Cornea Thickness Right Eye 103554 m Pachymetry adjusted IOP Right Eye -3 [...] Information Available Procedures Date Code Description Status 03/06/2018 32260 Eye Exam Est Intermediate Completed 03/06/2018 56719 Corneal Pachymetry, Unilateral/Bilateral Completed 02/13/2018 61830 Eye Exam Est Intermediate Completed 10/02/2017 65282 Oct, Optic Nerve Completed 10/02/2017 18313 Eye Exam Est Intermediate Completed 05/10/2017 83808 Visual Field Exam Extended, Unilateral Or Bilateral Completed 05/10/2017 21452 Eye Exam Est Intermediate Completed 11/30/2016 29183 Oct, Optic Nerve Completed 11/30/2016 24022 Eye Exam Est Intermediate Completed 11/02/2016 40090 Fundus Photography W/Interpretation & Report Completed 11/02/2016 39647 Ophthalmoscopy Subsequent Completed 11/02/2016 96061 Eye Exam Est Intermediate Completed 01/24/2016 46499 Oct, Optic Nerve Completed 01/24/2016 44068 Oct, Optic Nerve Completed 08/08/2015 78531 Fundus Photography W/Interpretation & Report Completed 08/08/2015 58835 Refraction Completed 08/08/2015 85014 Eye Exam Est Comprehensive Completed 08/08/2015 57593 Corneal Pachymetry, Unilateral/Bilateral Completed 05/06/2015 12386 Visual Field Exam Extended, Unilateral Or Bilateral Completed 05/06/2015 77331 Eye Exam Est Intermediate Completed 12/29/2014 39741 Oct, Optic Nerve Completed 12/29/2014 62609 Eye Exam Est Intermediate Completed 06/26/2014 18181 Refraction Completed 06/26/2014 26353 Eye Exam New Comprehensive Completed 06/26/2014 32505 Corneal Pachymetry, Unilateral/Bilateral Completed Encounters Type Date [...] dystrophies Office Visit 03/10/2018 8:00a Main Office Lyao Epps, 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
[2018-05-24 09:57] VITALS: BP 156/84
--- NOTE | 2018-05-24 11:10 | UC ---
Psychiatric Complaint HPI - HPI Summary HPI Summary: FOR THE PAST SEVERAL MONTHS PATIENT HAS BEEN STRUGGLING WITH WHAT SOUNDS LIKE UNDERLYING ANXIETY. SYMPTOMS HAVE BEEN WORSENING SINCE BEING DIAGNOSED WITH OCULAR SHINGLES IN MARCH. SHE WAS PLACED ON 300 MG GABAPENTIN TWICE A DAY FOR NEUROPATHIC PAIN WHICH SHE ABRUPTLY STOPPED ABOUT 4 DAYS AGO DUE TO CONCERNS ABOUT LONG-TERM USE. SINCE THEN SHE HAS HAD WORSENING SYMPTOMS WHICH SHE REPORTS ARE NOW INTOLERABLE. SHE IS CONSTANTLY ANXIOUS, FEARFUL WITH SHAKINESS AND SHORTNESS OF BREATH. SHE DENIES ANY SUICIDAL OR HOMICIDAL IDEATIONS. - History Of Current Complaint Chief Complaint: UCGeneralIllness Stated Complaint: ANXIETY Time Seen by Provider: 05/24/18 10:25 Hx Obtained From: Patient Onset/Duration: Gradual Onset, Lasting Weeks, Still Present Timing: Constant Severity Initially: Moderate Severity Currently: Moderate Character: Fearful, Anxious Aggravating Factor(s): Recent Stress, Other - ABRUPT DISCONTINUATION OF GABAPENTIN - Allergies/Home Medications Allergies/Adverse Reactions: Allergies Allergy/AdvReac Type Severity Reaction Status Date / Time ibuprofen Allergy Unknown Verified 05/24/18 09:57 Reaction Details Penicillins AdvReac Unknown Verified 05/24/18 09:57 Reaction Details Home Medications: Home Medications Cyclopentolate 1% OPTH.GE* [Cyclogyl 1% OPTH.GE*] 1 drop LEFT EYE SEE INSTRUCTIONS 05/24/18 [History Confirmed 05/24/18] prednisoLONE 1% OPHTH.SUSP* [Pred Forte 1%*] 1 drop .SEE ORDER 05/24/18 [History ] PMH/Surg Hx/FS Hx/Imm Hx Endocrine History: Diabetes, Dyslipidemia Cardiovascular History: Hypertension Psychological History: Anxiety - Surgical History Surgical History: Yes Surgery Procedure, Year, and Place: hysterectomy - Family History Known Family History: Positive: Hypertension, Diabetes Family History: ANXIETY - Social History Alcohol Use: None Substance Use Type: None Smoking Status (MU): Never Smoked Tobacco Type: Cigarettes Length of Time of Smoking/Using Tobacco: 10 yrs Have You Smoked in the Last Year: No - Immunization History Most Recent Influenza Vaccination: UNSURE Most Recent Pneumonia Vaccination: UNSURE Review of Systems Constitutional: Negative Skin: Negative Respiratory: Shortness Of Breath Cardiovascular: Negative Gastrointestinal: Negative Psychological: Anxious All Other Systems Reviewed And Are Negative: Yes Physical Exam Triage Information Reviewed: Yes Appearance: No Pain Distress, Well-Nourished, Other: - ANXIOUS, WRINGING HANDS, BREATHING HEAVILY, NEAR TEARS Vital Signs: Initial Vital Signs Temp 98.1 F 05/24/18 09:52 Pulse 87 05/24/18 09:52 Resp 18 05/24/18 09:52 BP 156/84 05/24/18 09:52 Pulse Ox 97 05/24/18 09:52 Vital Signs Reviewed: Yes Eyes: Positive: Conjunctiva Clear ENT: Positive: Hearing grossly normal Neck: Positive: Supple Respiratory: Positive: No respiratory distress, No accessory muscle use Cardiovascular: Positive: Pulses Normal Abdomen Description: Positive: Soft Musculoskeletal: Positive: No Edema Neurological: Positive: Alert Psychological: Positive: Other: - ANXIOUS Skin: Negative: rashes Psych Complaint Course/Dx - Course Course Of Treatment: PATIENT WITH WHAT SOUNDS LIKE LONG-STANDING UNDERLYING ANXIETY THAT SHE HAS BEEN COPING WITH UNTIL ABOUT 2 MONTHS AGO WHEN SHE WAS DIAGNOSED WITH OCULAR SHINGLES. SINCE THEN SX HAVE BEEN WORSENING. HAS BEEN TAKING 300 MG OF GABAPENTIN TWICE A DAY FOR HER NEUROPATHIC PAIN WHICH SHE ABRUPTLY STOPPED 3 DAYS AGO. HER ANXIETY SYMPTOMS GOT MUCH WORSE AFTER THAT AND HAVE BECOME UNBEARABLE. DISCUSSED TREATING SYMPTOMS WITH MEDICATIONS AND HAVING HER HAVE CLOSE FOLLOW-UP WITH HER PRIMARY CARE PROVIDER VERSUS GOING TO THE ED. SHE OPTS FOR ED EVALUATION TODAY. - Differential Dx/Diagnosis Provider Diagnoses: 1. ANXIETY. 2. GABAPENTIN WITHDRAWAL - Physician Notifications Discussed Patient Care With: ARON GARRETT Time Discussed With Above Provider: 11:15 Instructed by Provider To: MD Will See In ED Discharge - Sign-Out/Discharge Documenting (check all that apply): Patient Departure All imaging exams completed and their final reports reviewed: No Studies - Discharge Plan Condition: Stable Disposition: HOME Patient Education Materials: Anxiety (ED) Referrals: Gabrielle Yap MD [Primary Care Provider] - As Soon As Possible Additional Instructions: YOU SEEM TO BE SUFFERING FROM ANXIETY WHICH HAS BEEN BUILDING OVER THE PAST FEW MONTHS. YOUR SYMPTOMS HAVE LIKELY BEEN EXACERBATED BY YOUR ABRUPT DISCONTINUATION OF GABAPENTIN 4 DAYS AGO. WE DISCUSSED TRYING OUTPATIENT MANAGEMENT WITH MEDICATIONS AND CLOSE FOLLOW-UP BUT YOU HAVE OPTED FOR MORE IMMEDIATE INTERVENTION IN THE EMERGENCY DEPARTMENT WHICH IS REASONABLE. GO DIRECTLY THERE FOR FURTHER TREATMENT. [facility] Address: [address] [place] [address] - Billing Disposition and Condition Condition: STABLE Disposition: Home
== END 2018-05-24 11:10 | disposition home or self-care (01) ==
LOC: UCEAST 09:47
DX: F41.9 Anxiety disorder, unspecified (principal); F19.939 Other psychoactive substance use, unspecified with withdrawal, unspecified; Z88.0 Allergy status to penicillin; Z88.6 Allergy status to analgesic agent; E11.9 Type 2 diabetes mellitus without complications; I10 Essential (primary) hypertension
CPT/HCPCS: 99212; G0463

== ENCOUNTER 2018-05-24 11:39 | Emergency (ER) | payer MEDICARE ==
[2018-05-24] MEDS ORDERED: LORazepam TAB(*) 1 MG PO ONE (12:21)
--- NOTE | 2018-05-24 12:21 | ED ---
Complex/Multi-Sys Presentation - HPI Summary HPI Summary: 67 year old F referred from [facility] to [facility] complains of anxiety since a few weeks ago, worse since this morning. Symptoms aggravated by nothing. Symptoms alleviated by nothing. Patient reports nervousness and shakiness. Patient denies suicidal ideation. Patient has no hx anxiety - History Of Current Complaint Chief Complaint: EDGeneral Hx Obtained From: Patient Onset/Duration: Lasting Weeks, Still Present, Worse Since - this morning Aggravating Factor(s): Nothing Alleviating Factor(s): Nothing Associated Signs And Symptoms: Positive: Other - nervousness, shakiness; NEGATIVE: suicidal ideation - Allergies/Home Medications Allergies/Adverse Reactions: Allergies Allergy/AdvReac Type Severity Reaction Status Date / Time ibuprofen Allergy Unknown Verified 05/24/18 09:57 Reaction Details Penicillins AdvReac Unknown Verified 05/24/18 09:57 Reaction Details PMH/Surg Hx/FS Hx/Imm Hx Previously Healthy: No Endocrine/Hematology History: Reports: Hx Diabetes - type 2 dm Denies: Hx Thyroid Disease, Hx Anemia Cardiovascular History: Reports: Hx Hypertension Respiratory History: Denies: Hx Asthma, Hx Chronic Obstructive Pulmonary Disease (COPD) GI History: Denies: Hx Jaundice, Hx Ulcer Musculoskeletal History: Denies: Hx Arthritis, Hx Osteoporosis Sensory History: Reports: Hx Contacts or Glasses Denies: Hx Hearing Aid Opthamlomology History: Reports: Hx Contacts or Glasses Neurological History: Reports: Hx Headaches - Cancer History Hx Chemotherapy: No Hx Radiation Therapy: No - Surgical History Surgery Procedure, Year, and Place: hysterectomy Infectious Disease History: No Infectious Disease History: Reports: Hx Shingles Denies: Hx Hepatitis, Hx Human Immunodeficiency Virus (HIV), Traveled Outside the [place] in Last 30 Days - Family History Known Family History: Positive: Hypertension, Diabetes Family History: ANXIETY - Social History Alcohol Use: None Hx Substance Use: No Substance Use Type: Reports: None Hx Tobacco Use: Yes Smoking Status (MU): Former Smoker Type: Cigarettes Length of Time of Smoking/Using Tobacco: 10 yrs Have You Smoked in the Last Year: No Review of Systems Positive: Other - hot flashes Positive: Other - anxiety, nervousness, shakiness All Other Systems Reviewed And Are Negative: Yes Physical Exam - Summary Physical Exam Summary: VITAL SIGNS: Reviewed. GENERAL: Patient is a well-developed and nourished female who is lying comfortable in the stretcher. Patient is not in any acute respiratory distress. She is nervous and anxious. HEAD AND FACE: No signs of trauma. No ecchymosis, hematomas or skull depressions. No sinus tenderness. EYES: PERRLA, EOMI x 2, No injected conjunctiva, no nystagmus. EARS: Hearing grossly intact. Ear canals and tympanic membranes are within normal limits. MOUTH: Oropharynx within normal limits. NECK: Supple, trachea is midline, no adenopathy, no JVD, no carotid bruit, no c- spine tenderness, neck with full ROM. CHEST: Symmetric, no tenderness at palpation LUNGS: Clear to auscultation bilaterally. No wheezing or crackles. CVS: Regular rate and rhythm, S1 and S2 present, no murmurs or gallops appreciated. ABDOMEN: Soft, non-tender. No signs of distention. No rebound no guarding, and no masses palpated. Bowel sounds are normal. EXTREMITIES: FROM in all major joints, no edema, no cyanosis or clubbing. NEURO: Alert and oriented x 3. No acute neurological deficits. Speech is normal and follows commands. SKIN: Dry and warm Triage Information Reviewed: Yes Vital Signs On Initial Exam: Initial Vitals Temp Pulse Resp BP Pulse Ox 98.3 F 89 16 173/84 98 05/24/18 11:40 05/24/18 11:40 05/24/18 11:40 05/24/18 11:40 05/24/18 11:40 Vital Signs Reviewed: Yes Diagnostics - Vital Signs Vital Signs Temp Pulse Resp BP Pulse Ox 05/24/18 11:40 98.3 F 89 16 173/84 98 - Laboratory Result Diagrams: 05/24/18 12:50 05/24/18 12:50 Lab Statement: Any lab studies that have been ordered have been reviewed, and results considered in the medical decision making process. Complex Multi-Symp Course/Dx Assessment/Plan: This patient is a 67-year-old female who presents to the emergency department after she was transferred from the urgent care with a chief complaint of having anxiety. She reports that she was taking the presenting approximate 3 times a day and she was told that this medication may cause seizures withdrawals and she stopped taking the medication approximately 4 -5 days ago. She reports that she does want takes medication any longer. Now she is complaining of anxiety and nervousness for the last 2 days. Patient denies any chest patients develop palpitations. Patient denies any headache, dizziness or neck pain. Patient has past medical history significant for cellulitis, meningioma, hypokalemia, dyslipidemia, diabetes, hypertension and a thyroid nodule. Test results with without any significant abnormality except for the WBCs of 13.7, potassium level of 3.3 for which the patient was given potassium chloride. Patient denies any headache, upper lobes traumatic weakness , difficulty ambulation. The neurological exam is normal except the patient's anxious. Therefore, I chose not to do head CT since the patient is neurological intact. In the ED course the patient was given Ativan and his symptoms significantly improved. The patient reports that her anxiety is no longer present. Therefore this time I wouldn't discharge the patient home with follow-up with primary care physician. Patient was instructed to return to the emergency room if she develops any headaches, dizziness, chest pain, shortness of breath or palpitations. Patient understands and agrees. - Diagnoses Provider Diagnoses: Anxiety, Panic attacks Discharge - Sign-Out/Discharge Documenting (check all that apply): Patient Departure - Discharge - Discharge Plan Condition: Stable Disposition: HOME Prescriptions: hydrOXYzine HCL TAB* [Atarax 25 MG TAB*] 25 mg PO TID PRN #30 tab PRN Reason: Anxiety Patient Education Materials: Anxiety (ED), Panic Attack (ED) Referrals: Gabrielle Yap MD [Primary Care Provider] - 2 Days Additional Instructions: Follow up with your primary care provider in 2 days. RETURN TO THE EMERGENCY DEPARTMENT FOR NEW OR WORSENING SYMPTOMS. - Billing Disposition and Condition Condition: STABLE Disposition: Home - Attestation Statements Document Initiated by Natalieibe: Yes Documenting Scribe: Christine Galaviz Provider For Whom Barber is Documenting (Include Credential): Luisito Alfred MD Scribe Attestation: Christine Brooks, scribed for Luisito Alfred MD on 05/25/18 at 1125. Scribe Documentation Reviewed: Yes Provider Attestation: The documentation as recorded by the scribeChristine accurately reflects the service I personally performed and the decisions made by me, Luisito Alfred MD
[2018-05-24 13:01] LABS: Urine Appearance Cloudy; Urine Blood Negative (Negative); Urine Color Yellow; Urine Ketones Negative (Negative); Urine Protein Negative (Negative); Urine Specific Gravity 1.009 (1.010-1.030); Urine Urobilinogen Negative (Negative)
[2018-05-24 13:11] LABS: ABS Basophils 0.1 10^3/ul (0-0.2); ABS Eosinophils 0 10^3/ul (0-0.6); ABS Lymphocytes 3.1 10^3/ul (1.0-4.8); ABS Monocytes 0.8 10^3/ul (0-0.8); ABS Neutrophils 9.8 10^3/ul (1.5-7.7); ABS Nucleated RBC 0 10^3/ul; Eosinophil % 0.2 % (0-6); Hematocrit 41 % (35-47); Hemoglobin 13.4 g/dl (12.0-16.0); Lymphocyte % 22.3 % (25-47); Mean Corpuscular HGB Conc 33 g/dl (31-36); Mean Corpuscular Hemoglobin 27 pg (27-31); Mean Corpuscular Volume 82 fL (80-97); Mean Platelet Volume 8.1 um3 (7.4-10.4); Nucleated Red Blood Cells % 0; Platelet Count 341 10^3/ul (150-450); Red Cell Distribution Width 15 % (10.5-15); White Blood Count 13.7 10^3/ul (3.5-10.8)
[2018-05-24] MEDS ORDERED: Potassium Chlor TAB* 20 MEQ TAB.ER PO ONE (13:37)
[2018-05-24 14:36] VITALS: BP 140/87
== END 2018-05-24 14:34 | disposition home or self-care (01) ==
LOC: ED 11:39
DX: F41.0 Panic disorder [episodic paroxysmal anxiety] (principal); Z87.891 Personal history of nicotine dependence; I10 Essential (primary) hypertension; E11.9 Type 2 diabetes mellitus without complications
CPT/HCPCS: 36415; 80053; 80307; 80320; 80329; 81003; 84443; 85025; 99282; A9270-GY; G0480